=== PATIENT | male | born 1940 | race Caucasian/White ===

== ENCOUNTER 2016-08-09 09:14 | Emergency (ER) | payer MEDICARE ==
[2016-08-09 09:25] VITALS: TEMP 98.7
[2016-08-09] MEDS: HYDROcodone/APAP 5-325MG 1 EACH TAB PO STA (09:52)
--- NOTE | 2016-08-09 10:13 | XR ---
EXAMINATION TYPE: XR ankle complete LT DATE OF EXAM: 08/09/2016 10:06 AM COMPARISON: NONE HISTORY: Pain Three views of the ankle demonstrate the ankle mortise to be intact and symmetric. The joint spaces are preserved. The osseous structures are intact. Corticated densities along the medial malleolus a re noted which appear most likely chronic. There is diffuse soft tissue edema. Calcaneal spurs are no hemanth. Is a slightly irregular margin along the medial malleolus. IMPRESSION: 1. Findings suspicious for avulsion fracture medial malleolus correlate with point tenderness. 2. Diffuse soft tissue edema
--- NOTE | 2016-08-09 10:35 | ED ---
Extremity Problem HPI - General Chief complaint: Extremity Problem,Nontraumatic Stated complaint: ankle pain Time Seen by Provider: 08/09/16 09:49 Source: EMS, RN notes reviewed Mode of arrival: EMS Limitations: no limitations - History of Present Illness Initial comments: 75-year-old male presents to emergency department with a chief complaint of left ankle injury. Patient states on Monday he was walking and he twisted the ankle and felt a pop. He states later in the week he felt another pop. Patient states that P been unable to walk. Patient states he is tenderness to lateral aspect of the foot. Patient states that he doesn't have any other injuries in the incident there is no head trauma there is no actual fall. Patient denies any history of problems with the ankle. Patient states concerned due to his continued pain he thought that he should be evaluated. Patient denies any recent fever, chills, shortness of breath, chest pain, back pain, abdominal pain, nausea vomiting, numbness or tingling, dysuria or hematuria, constipation or diarrhea, headaches or visual changes, or any other current symptoms. - Related Data Home Medications Medication Instructions Recorded Confirmed [place] Hemifumarate [Tekturna] 75 mg PO HS 02/20/16 08/09/16 Cholecalciferol [Vitamin D3] 1,000 unit PO DAILY 02/20/16 08/09/16 Folic Acid 1 mg PO HS 02/20/16 08/09/16 Mesalamine [Delzicol] 400 mg PO TID 02/20/16 08/09/16 Potassium Chloride [Klor-Con 20] 20 meq PO BID 02/20/16 08/09/16 Rivaroxaban [Xarelto] 20 mg PO HS 02/20/16 08/09/16 hydrALAZINE HCL [Apresoline] 100 mg PO TID 02/20/16 08/09/16 LORazepam [Ativan] 1 mg PO BID 08/09/16 08/09/16 Pantoprazole Sodium [Protonix] 40 mg PO DAILY 08/09/16 08/09/16 Spironolactone [Aldactone] 25 mg PO DAILY 08/09/16 08/09/16 Previous Rx's Medication Instructions Recorded Nitroglycerin Sl Tabs [Nitrostat] 0.4 mg SUBLINGUAL Q5M PRN #100 tab 02/22/16 Hydrocodone/Acetaminophen [[place] 1 each PO Q6HR PRN #20 tab 08/09/16 5-325] Allergies Allergy/AdvReac Type Severity Reaction Status Date / Time meperidine HCl [From Demerol] Allergy BLOOD Verified 08/09/16 09:46 PRESSURE DROPPED Review of Systems ROS Statement: Those systems with pertinent positive or pertinent negative responses have been documented in the HPI. ROS Other: All systems not noted in ROS Statement are negative. Past Medical History Past Medical History: Atrial Fibrillation, Cancer, Hypertension, Sleep Apnea/ CPAP/BIPAP Additional Past Medical History / Comment(s): WEARS C-PAP AT HOME. LEFT SHOULDER ROTATOR CUFF INJURY CURRENTLY, RIGHT SIDE FLOATING RIB FROM OLD INJURY , PROSTATE CANCER WITH REMOVAL OF PROSTATE, Chrons, Multiple Myeloma History of Any Multi-Drug Resistant Organisms: None Reported Past Surgical History: Cholecystectomy, Orthopedic Surgery, Prostate Surgery Additional Past Surgical History / Comment(s): RIGHT KNEE REPLACED Past Anesthesia/Blood Transfusion Reactions: Postoperative Nausea & Vomiting ( PONV) Past Psychological History: No Psychological Hx Reported Smoking Status: Former smoker Past Alcohol Use History: Occasional Additional Past Alcohol Use History / Comment(s): QUIT SMOKING 40 YEARS AGO. Past Drug Use History: None Reported - Past Family History Father Family Medical History: Hypertension Additional Family Medical History / Comment(s): LUNG CANCER Mother Family Medical History: Hypertension Additional Family Medical History / Comment(s): LIVED UNTIL 95 YEARS OLD. General Exam - General Exam Comments Initial Comments: General: The patient is awake and alert, in no distress, and does not appear acutely ill. Neck: The neck is supple, there is no tenderness. Cardiovascular: There is a regular rate and rhythm. No murmur, rub or gallop is appreciated. Respiratory: Lungs are clear to auscultation, respirations are non-labored, breath sounds are equal. No wheezes, stridor, rales, or rhonchi. Musculoskeletal: Sensation intact with 2+ pulses throughout the left lower externa. Full range of motion of left knee and left ankle. Patient does appear to have medial and lateral tenderness to palpation with mild swelling noted. Patient does have full range motion of the toes. Patient has pain with range of motion of the ankle and will not do active range of motion passive is limited due to pain as well. No tenderness patient proximal tib-fib joint. Neurological: CN II-XII intact, There are no obvious motor or sensory deficits. Coordination appears grossly intact. Speech is normal. Skin: Skin is warm and dry and no rashes or lesions are noted. Psychiatric: Normal mood and affect. Limitations: no limitations Course Vital Signs 08/09/16 08/09/16 09:19 09:24 Temperature 98.7 F Pulse Rate 70 Respiratory 18 Rate Blood Pressure 150/87 O2 Sat by Pulse 97 Oximetry Procedures - Orthopedic Splinting/Casting Injury #1 Side: left Lower Extremity Injury Location: ankle Lower Extremity Immobilizer: posterior splint (Short leg) Medical Decision Making - Medical Decision Making 75-year-old male presents with what appears to be an avulsion fracture to the medial malleolus. Patient also does appear to most likely have a high-grade ankle sprain. This time we placed the patient is splinted we discussed follow- up with orthopedics is given information we will start patient on arrival for pain control. We discussed return parameters and all the patient's questions. He stated he understood he is in agreement with plan. At this time patient will be discharged home. - Radiology Data Radiology results: report reviewed, image reviewed Disposition Clinical Impression: Left ankle sprain, Avulsion fracture of left ankle Disposition: HOME SELF-CARE Condition: Stable Instructions: Ankle Fracture (ED) Additional Instructions: Please use medication as discussed. Please follow up with family doctor if symptoms have not improved over the next two days. Please return to the emergency room if your symptoms increase or worsen or for any other concerns. Prescriptions: Hydrocodone/Acetaminophen [[place] 5-325] 1 each PO Q6HR PRN #20 tab PRN Reason: Pain Referrals: Josue Watts MD [Primary Care Provider] - 1-2 days Mario Victoria DO [Doctor of Osteopathic Medicine] - 1-2 days Time of Disposition: 10:35
[2016-08-09] MEDS: HYDROmorphone 1 MG/ML 1 ML SYRINGE IM STA (10:40)
[2016-08-09 10:45] VITALS: BP 132/80; PULSE 82; RESP 16
== END 2016-08-09 10:48 | disposition home or self-care (01) ==
LOC: EC 09:14
DX: S82.52XA Displaced fracture of medial malleolus of left tibia, initial encounter for closed fracture (principal); S93.402A Sprain of unspecified ligament of left ankle, initial encounter; X50.1XXA Overexertion from prolonged static or awkward postures, initial encounter; I48.91 Unspecified atrial fibrillation; I10 Essential (primary) hypertension; K50.90 Crohn's disease, unspecified, without complications; G47.30 Sleep apnea, unspecified; Z79.01 Long term (current) use of anticoagulants; Z79.899 Other long term (current) drug therapy; Z88.5 Allergy status to narcotic agent; Z99.89 Dependence on other enabling machines and devices; Z87.891 Personal history of nicotine dependence
CPT/HCPCS: 73610; 99283; 29515; 96372; J1170

== ENCOUNTER 2018-09-22 06:24 | Inpatient (IN) | payer MEDICARE ==
[2018-09-22] MEDS ORDERED: ACETAMINOPHEN TAB 500 MG TAB PO STA (06:29)
[2018-09-22] MEDS ORDERED: IBUPROFEN 600 MG TAB PO STA (06:29)
[2018-09-22] MEDS: SODIUM CHLORIDE 0.9% 500 ML 500 ML IV SCH ×3 (06:42→09:02)
[2018-09-22 06:58] LABS: Basophils % (A) 0 %; Eosinophils # (A) 0.1 k/uL (0-0.7); Eosinophils % (A) 1 %; HCT 38.1 % (39.0-53.0); HGB 12.5 gm/dL (13.0-17.5); Lymphocytes # (A) 1.5 k/uL (1.0-4.8); Lymphocytes % (A) 15 %; MCH 28.2 pg (25.0-35.0); MCHC 32.8 g/dL (31.0-37.0); MCV 85.9 fL (80.0-100.0); Mean Platelet Volume 7.2; Monocytes # (A) 0.4 k/uL (0-1.0); Monocytes % (A) 4 %; Neutrophils # (A) 7.7 k/uL (1.3-7.7); Neutrophils % (A) 78 %; Platelet Count 144 k/uL (150-450); RBC 4.43 m/uL (4.30-5.90); RDW 15.3 % (11.5-15.5); WBC 9.8 k/uL (3.8-10.6)
--- NOTE | 2018-09-22 07:02 | XR ---
EXAM: XR Chest, 1 View CLINICAL HISTORY: ITS.REASON XR Reason: Fever TECHNIQUE: Frontal view of the chest. COMPARISON: 02/20/16. FINDINGS: Lungs: Bilateral lung opacities, more prominent in the lower lungs. Pleural space: No significant pleural effusion or pneumothorax. Heart: Enlarged cardiomediastinal silhouette. Mediastinum: Bilateral perihilar prominence, may be related to prominent vasculature, adenopathy/mass, or consolidation. Bones/joints: Old fracture deformities. Tubes, lines and devices: Left chest pacer. IMPRESSION: 1. Bilateral lung opacities, more prominent in the lower lungs. Correlate clinically regarding infection or edema. 2. Bilateral perihilar prominence, may be related to prominent vasculature, adenopathy/mass, or consolidation. 3. Enlarged cardiomediastinal silhouette.
[2018-09-22 07:13] LABS: INR 1.4 (<1.2); Partial Thromboplastin Time 27.1 sec (22.0-30.0); Prothrombin Time 14.1 sec (9.0-12.0); Total Bilirubin 1.5 mg/dL (0.2-1.3)
[2018-09-22] MEDS ORDERED: NALOXONE 0.4 MG/ML 1 ML VIAL IV PRN (07:26)
--- NOTE | 2018-09-22 07:26 | ED ---
SOB HPI - General Chief Complaint: Shortness of Breath Stated Complaint: Shortness of Breath Time Seen by Provider: 09/22/18 06:28 Source: patient, EMS Mode of arrival: EMS Limitations: no limitations - History of Present Illness Initial Comments: This is a pleasant 77-year-old male presents the emergency department today via EMS for evaluation of flulike illness. Patient reports that he's had fevers, chills, nausea, vomiting, nonproductive cough and generalized malaise for couple of days. This morning he was having nausea and vomiting which prompted his son to call [facility] on their arrival they noted the patient is mildly hypoxic, increased work of breathing and was febrile. Patient received breathing treatment, albuterol and DuoNeb as well as 125 of Solu-Medrol in route to the hospital with improvement in his breathing. - Related Data Home Medications Medication Instructions Recorded Confirmed Cholecalciferol [Vitamin D3] 1,000 unit PO DAILY 02/20/16 09/22/18 Folic Acid 1 mg PO HS 02/20/16 09/22/18 Potassium Chloride [Klor-Con 20] 20 meq PO BID 02/20/16 09/22/18 Rivaroxaban [Xarelto] 20 mg PO HS 02/20/16 09/22/18 Carvedilol [Coreg] 12.5 mg PO BID 09/22/18 09/22/18 Furosemide [Lasix] 40 mg PO DAILY 09/22/18 09/22/18 Gabapentin [Neurontin] 300 mg PO BID 09/22/18 09/22/18 Isosorbide Dinitrate [Isordil] 5 mg PO TID 09/22/18 09/22/18 Rivaroxaban [Xarelto] 20 mg PO DAILY 09/22/18 09/22/18 hydrALAZINE HCL [Apresoline] 100 mg PO BID 09/22/18 09/22/18 Previous Rx's Medication Instructions Recorded Nitroglycerin Sl Tabs [Nitrostat] 0.4 mg SUBLINGUAL Q5M PRN #100 tab 02/22/16 Allergies Allergy/AdvReac Type Severity Reaction Status Date / Time meperidine HCl [From Demerol] Allergy BLOOD Verified 09/22/18 07:29 PRESSURE DROPPED Review of Systems ROS Statement: Those systems with pertinent positive or pertinent negative responses have been documented in the HPI. ROS Other: All systems not noted in ROS Statement are negative. Constitutional: Reports: fever, chills Respiratory: Reports: cough, dyspnea Endocrine: Reports: fatigue Gastrointestinal: Reports: nausea, vomiting Neurological: Reports: weakness (Generalized) Past Medical History Past Medical History: Atrial Fibrillation, Cancer, Hypertension, Sleep Apnea/CPAP/BIPAP Additional Past Medical History / Comment(s): WEARS C-PAP AT HOME. LEFT SHOULDER ROTATOR CUFF INJURY CURRENTLY, RIGHT SIDE FLOATING RIB FROM OLD INJURY, PROSTATE CANCER WITH REMOVAL OF PROSTATE, Chrons, Multiple Myeloma History of Any Multi-Drug Resistant Organisms: None Reported Past Surgical History: Cholecystectomy, Orthopedic Surgery, Prostate Surgery Additional Past Surgical History / Comment(s): RIGHT KNEE REPLACED Past Anesthesia/Blood Transfusion Reactions: Postoperative Nausea & Vomiting (PONV) Past Psychological History: No Psychological Hx Reported Smoking Status: Former smoker Past Alcohol Use History: Occasional Past Drug Use History: None Reported - Past Family History Father Family Medical History: Hypertension Additional Family Medical History / Comment(s): LUNG CANCER Mother Family Medical History: Hypertension Additional Family Medical History / Comment(s): LIVED UNTIL 95 YEARS OLD. General Exam - General Exam Comments Initial Comments: Physical Exam GENERAL: Ill-appearing elderly male HENT: Normocephalic, Atraumatic. EYES: PERRL, EOMI PULMONARY: Crackles at bilateral bases CARDIOVASCULAR: RRR ABDOMEN: Soft and nontender with normal bowel sounds. SKIN: Warm to the touch and dry : Deferred NEUROLOGIC: Patient is alert and oriented x3. Moving all extremities spontaneously MUSCULOSKELETAL: Normal extremities with adequate strength and full range of motion. No lower extremity swelling or edema. No calf tenderness. PSYCHIATRIC: Normal psychiatric evaluation. Limitations: no limitations Limitations: no limitations Course Vital Signs 09/22/18 09/22/18 06:26 07:32 Temperature 101.1 F H 98.8 F Pulse Rate 86 60 Respiratory 28 H 16 Rate Blood Pressure 167/114 149/101 O2 Sat by Pulse 96 98 Oximetry Medical Decision Making - Medical Decision Making was seen and evaluated history is obtained from the patient and EMS Physical 77-year-old presenting with a flulike illness Patient is noted to be tachypneic and febrile. Sepsis workup was initiated including blood cultures already have a high suspicion for influenza and influenza swab will be obtained as well but no leukocytosis Influenza A is positive is concerning for possible early infiltrate however given the setting of influence I suspect is likely viral pneumonia Asians care was discussed with admitting physician Dr. Cervantes of the [facility] who agrees with plan for admission for influenza A in elderly male. - Lab Data Result diagrams: 09/22/18 06:38 09/22/18 06:38 Lab Results 09/22/18 09/22/18 09/22/18 Range/Units 06:27 06:38 06:38 WBC 9.8 (3.8-10.6) k/uL RBC 4.43 (4.30-5.90) m/uL Hgb 12.5 L (13.0-17.5) gm/dL Hct 38.1 L (39.0-53.0) % MCV 85.9 (80.0-100.0) fL MCH 28.2 (25.0-35.0) pg MCHC 32.8 (31.0-37.0) g/dL RDW 15.3 (11.5-15.5) % Plt Count 144 L (150-450) k/uL Neutrophils % 78 % Lymphocytes % 15 % Monocytes % 4 % Eosinophils % 1 % Basophils % 0 % Neutrophils # 7.7 (1.3-7.7) k/uL Lymphocytes # 1.5 (1.0-4.8) k/uL Monocytes # 0.4 (0-1.0) k/uL Eosinophils # 0.1 (0-0.7) k/uL Basophils # 0.0 (0-0.2) k/uL PT (9.0-12.0) sec INR (<1.2) APTT (22.0-30.0) sec Sodium 140 (137-145) mmol/L Potassium 4.1 (3.5-5.1) mmol/L Chloride 100 (98-107) mmol/L Carbon Dioxide 32 H (22-30) mmol/L Anion Gap 8 mmol/L BUN 18 (9-20) mg/dL Creatinine 1.40 H (0.66-1.25) mg/dL Est GFR (CKD-EPI)AfAm 55 (>60 ml/min/1.73 sqM) Est GFR (CKD-EPI)NonAf 48 (>60 ml/min/1.73 sqM) Glucose 109 H (74-99) mg/dL Plasma Lactic Acid Maurice (0.7-2.0) mmol/L Calcium 9.0 (8.4-10.2) mg/dL Total Bilirubin 1.5 H (0.2-1.3) mg/dL AST 53 (17-59) U/L ALT 31 (21-72) U/L Alkaline Phosphatase 37 L (38-126) U/L Total Protein 7.8 (6.3-8.2) g/dL Albumin 4.3 (3.5-5.0) g/dL Influenza Type A RNA Detected H (Not Detectd) Influenza Type B (PCR) Not Detected (Not Detectd) 09/22/18 09/22/18 Range/Units 06:38 06:38 WBC (3.8-10.6) k/uL RBC (4.30-5.90) m/uL Hgb (13.0-17.5) gm/dL Hct (39.0-53.0) % MCV (80.0-100.0) fL MCH (25.0-35.0) pg MCHC (31.0-37.0) g/dL RDW (11.5-15.5) % Plt Count (150-450) k/uL Neutrophils % % Lymphocytes % % Monocytes % % Eosinophils % % Basophils % % Neutrophils # (1.3-7.7) k/uL Lymphocytes # (1.0-4.8) k/uL Monocytes # (0-1.0) k/uL Eosinophils # (0-0.7) k/uL Basophils # (0-0.2) k/uL PT 14.1 H (9.0-12.0) sec INR 1.4 H (<1.2) APTT 27.1 (22.0-30.0) sec Sodium (137-145) mmol/L Potassium (3.5-5.1) mmol/L Chloride (98-107) mmol/L Carbon Dioxide (22-30) mmol/L Anion Gap mmol/L BUN (9-20) mg/dL Creatinine (0.66-1.25) mg/dL Est GFR (CKD-EPI)AfAm (>60 ml/min/1.73 sqM) Est GFR (CKD-EPI)NonAf (>60 ml/min/1.73 sqM) Glucose (74-99) mg/dL Plasma Lactic Acid Maurice 1.2 (0.7-2.0) mmol/L Calcium (8.4-10.2) mg/dL Total Bilirubin (0.2-1.3) mg/dL AST (17-59) U/L ALT (21-72) U/L Alkaline Phosphatase (38-126) U/L Total Protein (6.3-8.2) g/dL Albumin (3.5-5.0) g/dL Influenza Type A RNA (Not Detectd) Influenza Type B (PCR) (Not Detectd) - EKG Data -: EKG Interpreted by Me EKG Comments: G was obtained at 6:20 AM, rate 75 rhythm is a ventricularly paced, QRS is 182 QTc is [address] elevations or depressions no evidence of acute ischemia or infarction. Disposition Clinical Impression: Influenza Disposition: ADMITTED IP TO THIS HOSP Condition: Stable Referrals: Nonstaff,Physician [Primary Care Provider] - 1-2 days
[2018-09-22 07:30] LABS: Potassium 4.1 mmol/L (3.5-5.1)
[2018-09-22 07:31] LABS: Albumin 4.3 g/dL (3.5-5.0); Total Protein 7.8 g/dL (6.3-8.2)
[2018-09-22] MEDS ORDERED: hydrALAZINE HCL 50 MG TAB PO STA (07:53)
[2018-09-22] MEDS: CARVEDILOL 12.5 MG TAB PO SCH ×4 (08:36→16:49)
[2018-09-22] MEDS ORDERED: CARVEDILOL 12.5 MG TAB PO STA (08:42)
[2018-09-22] MEDS ORDERED: RIVAROXABAN 20 MG TAB PO SCH ×2 (09:00→21:00)
[2018-09-22] MEDS ORDERED: NON-FORMULARY DRUG (Carvedilol [Coreg] 12.5 MG) PO SCH (09:00)
[2018-09-22] MEDS: FUROSEMIDE 40 MG TAB PO SCH (09:54)
[2018-09-22] MEDS: GABAPENTIN 300 MG CAP PO SCH ×2 (09:54→21:14)
[2018-09-22 10:14] LABS: Appearance,Urine Clear (Clear); Bilirubin,Urine Negative (Negative); Blood,Urine Negative (Negative); Color,Urine Yellow; Glucose,Urine (UA) Negative (Negative); Ketones,Urine Trace (Negative); Leukocyte Esterase,Urine Negative (Negative); Nitrite,Urine Negative (Negative); PH, Urine 6.5 (5.0-8.0); Protein,Urine 1+ (Negative); RBC,Urine 2 /hpf (0-5); Specific Gravity,Urine 1.011 (1.001-1.035); Urobilinogen,Urine <2.0 mg/dL (<2.0); WBC,Urine <1 /hpf (0-5)
[2018-09-22] MEDS: OSELTAMIVIR 60 MG/10 ML ORAL SYRINGE PO SCH ×2 (11:03→21:13)
[2018-09-22] MEDS: ISOSORBIDE DINITRATE 10 MG TAB PO SCH ×3 (11:04→21:15)
[2018-09-22] MEDS ORDERED: NITROGLYCERIN SL TABS 0.4 MG TAB SUBLINGUAL PRN (11:57)
[2018-09-22] MEDS ORDERED: SODIUM CHLORIDE 0.9% 1,000 ML IV SCH (12:00)
[2018-09-22] MEDS ORDERED: IPRATROPIUM-ALBUTEROL 3 ML NEB INHALATION PRN (12:08)
[2018-09-22] MEDS ORDERED: AZITHROMYCIN 500 MG TAB PO STA (12:10)
--- NOTE | 2018-09-22 13:06 | P.HPIM ---
History of Present Illness H&P Date: 09/22/18 Chief Complaint: Shortness of breath and cough The patient is a 77-year-old male with a past focal history of chronic atrial fibrillation on anticoagulation with Xarelto, congestive heart failure of unknown type, history of pacemaker placement, essential hypertension, multiple myeloma presumed to be in remission who presents to the ER via EMS with his daughter with chief complaint of complaints of increasing shortness of air and cough. Apparently the patient ran having a productive cough with clear sputum over a week ago and over the last 3 days has been having progressive increasing shortness of breath worsened by exertion and relieved by rest, with subjective fevers chills or night sweats last night. The patient has been increasingly fatigued but he denies any chest pain, denies palpitations denies lower extremity swelling. The patient has had nausea and vomiting but denies any abdominal pain or diarrhea. The patient is a former smoker has a prior [id number] history but has not smoked for 40 years. Apparently on arrival EMS found the patient mildly hypoxic, actual saturations not available. In the ER he had a comprehensive workup was found to be influenza A positive, with chest x-ray showing bilateral lung opacities more prominent on the lower lungs with bilateral perihilar prominence and enlarged cardio mediastinal silhouette, EKG revealed ventricular paced rhythm. Troponins was elevated at 0.070, creatinine was 1.4, total bilirubin 1.5, trace ketones. Patient was started on breathing treatments Solu-Medrol and Tamiflu and tian mmended for admission Review of Systems Pertinent positives per HPI all other systems otherwise negative Past Medical History Past Medical History: Atrial Fibrillation, Cancer, Heart Failure, Hypertension, Sleep Apnea/CPAP/BIPAP Additional Past Medical History / Comment(s): WEARS C-PAP AT HOME. LEFT SHOULDER ROTATOR CUFF INJURY CURRENTLY, RIGHT SIDE FLOATING RIB FROM OLD INJURY, PROSTATE CANCER WITH REMOVAL OF PROSTATE, Chrons, Multiple Myeloma , uses a cane, pacemaker History of Any Multi-Drug Resistant Organisms: None Reported Past Surgical History: Cholecystectomy, Orthopedic Surgery, Pacemaker, Prostate Surgery Additional Past Surgical History / Comment(s): RIGHT KNEE REPLACED, pacemaker 2018, Past Anesthesia/Blood Transfusion Reactions: Postoperative Nausea & Vomiting (PONV) Type of Cardiac Device: Permanent Pacemaker Device Placement Date:: 2017 Past Psychological History: No Psychological Hx Reported Smoking Status: Former smoker Past Alcohol Use History: Occasional Additional Past Alcohol Use History / Comment(s): QUIT SMOKING 40 YEARS AGO. Past Drug Use History: None Reported - Past Family History Father Family Medical History: Hypertension Additional Family Medical History / Comment(s): LUNG CANCER Mother Family Medical History: Hypertension Additional Family Medical History / Comment(s): LIVED UNTIL 95 YEARS OLD. Medications and Allergies Home Medications Medication Instructions Recorded Confirmed Type Cholecalciferol [Vitamin D3] 1,000 unit PO DAILY 02/20/16 09/22/18 History Folic Acid 1 mg PO HS 02/20/16 09/22/18 History Potassium Chloride [Klor-Con 20] 20 meq PO BID 02/20/16 09/22/18 History Rivaroxaban [Xarelto] 20 mg PO HS 02/20/16 09/22/18 History Nitroglycerin Sl Tabs [Nitrostat] 0.4 mg SUBLINGUAL Q5M PRN #100 tab 02/22/16 09/22/18 Rx Carvedilol [Coreg] 12.5 mg PO BID 09/22/18 09/22/18 History Furosemide [Lasix] 40 mg PO DAILY 09/22/18 09/22/18 History Gabapentin [Neurontin] 300 mg PO BID 09/22/18 09/22/18 History Isosorbide Dinitrate [Isordil] 5 mg PO TID 09/22/18 09/22/18 History Rivaroxaban [Xarelto] 20 mg PO DAILY 09/22/18 09/22/18 History hydrALAZINE HCL [Apresoline] 100 mg PO BID 09/22/18 09/22/18 History Allergies Allergy/AdvReac Type Severity Reaction Status Date / Time meperidine HCl [From Demerol] Allergy BLOOD Verified 09/22/18 07:29 PRESSURE DROPPED Physical Exam Vitals: Vital Signs Temp Pulse Resp BP Pulse Ox 09/22/18 10:39 18 09/22/18 08:47 65 19 134/88 97 09/22/18 07:32 98.8 F 60 16 149/101 98 09/22/18 06:26 101.1 F H 86 28 H 167/114 96 Intake and Output 09/21/18 09/22/18 09/22/18 22:59 06:59 14:59 Other: Voiding Method Toilet Weight 103.873 kg Constitutional: No acute distress, conversant, pleasant Eyes: Anicteric sclerae, moist conjunctiva, no lid-lag, PERRLA ENMT: NC/AT,Oropharynx clear, no erythema, exudates Neck:Supple, FROM, no masses, or JVD, No carotid bruits; No thyromegaly Lungs: Diminished in the bases mild expiratory wheezes, Clear to percussion, Normal respiratory effort, no accessory muscle use on 2 L nasal cannula Cardiovascular: Paced rhythm, No murmurs, gallops, or rubs no peripheral edema Abdominal: Soft Nontender, nom distended, no guarding, no rebound or rigidity, Normoactive bowel sounds No hepatomegaly, No splenomegaly, No palpable mass No abdominal wall hernia noted Skin: Normal temperature, tone, texture, turgor, No induration No subcutaneous nodules, No rash, lesions, No ulcers Extremities:No digital cyanosis No clubbing, Pedal pulses intact and symmetrical Radial pulses intact and symmetrical Normal gait and station, No calf tenderness Psychiatric: Alert and oriented to person, place and time, Appropriate affect Intact judgement Neuro: Muscles Strength 5/5 in all 4 extremities, Sensation to light touch grossly present throughout, Cranial nerves II-XII grossly intact. No focal sensory deficits Results CBC & Chem 7: 09/22/18 06:38 09/22/18 06:38 Labs: Abnormal Lab Results - Last 24 Hours (Table) 09/22/18 09/22/18 09/22/18 Range/Units 06:27 06:38 06:38 Hgb 12.5 L (13.0-17.5) gm/dL Hct 38.1 L (39.0-53.0) % Plt Count 144 L (150-450) k/uL PT (9.0-12.0) sec INR (<1.2) Carbon Dioxide 32 H (22-30) mmol/L Creatinine 1.40 H (0.66-1.25) mg/dL Glucose 109 H (74-99) mg/dL Total Bilirubin 1.5 H (0.2-1.3) mg/dL Alkaline Phosphatase 37 L (38-126) U/L Troponin I (0.000-0.034) ng/mL Urine Protein (Negative) Urine Ketones (Negative) Influenza Type A RNA Detected H (Not Detectd) 09/22/18 09/22/1819 Range/Units 06:38 06:38 09:32 Hgb (13.0-17.5) gm/dL Hct (39.0-53.0) % Plt Count (150-450) k/uL PT 14.1 H (9.0-12.0) sec INR 1.4 H (<1.2) Carbon Dioxide (22-30) mmol/L Creatinine (0.66-1.25) mg/dL Glucose (74-99) mg/dL Total Bilirubin (0.2-1.3) mg/dL Alkaline Phosphatase (38-126) U/L Troponin I 0.070 H* (0.000-0.034) ng/mL Urine Protein 1+ H (Negative) Urine Ketones Trace H (Negative) Influenza Type A RNA (Not Detectd) Thrombosis Risk Factor Assmnt - Choose All That Apply Any of the Below Risk Factors Present?: No Assessment and Plan Assessment: Chronic medical conditions Essential hypertension Congestive heart failure of unknown type Osteoarthritis History of multiple myeloma currently in remission Obstructive sleep apnea Crohn's disease (1) Sepsis Current Visit: Yes Status: Acute Code(s): A41.9 - SEPSIS, UNSPECIFIED ORGANISM SNOMED Code(s): 79904584 (2) Exertional dyspnea Current Visit: Yes Status: Acute Code(s): R06.09 - OTHER FORMS OF DYSPNEA SNOMED Code(s): 73021432 (3) Pneumonia Current Visit: Yes Status: Acute Code(s): J18.9 - PNEUMONIA, UNSPECIFIED ORGANISM SNOMED Code(s): 188364190 (4) Influenza Current Visit: Yes Status: Acute Code(s): J11.1 - FLU DUE TO UNIDENTIFIED INFLUENZA VIRUS W OTH RESP MANIFEST SNOMED Code(s): 6649532 (5) Chronic a-fib Current Visit: Yes Status: Acute Code(s): I48.2 - CHRONIC ATRIAL FIBRILLATION SNOMED Code(s): 407265126 (6) Elevated troponin Current Visit: Yes Status: Acute Code(s): R74.8 - ABNORMAL LEVELS OF OTHER SERUM ENZYMES SNOMED Code(s): 636755916 Plan: The patient is admitted anticipated greater than 2 midnight stay after presenting with exertional dyspnea and cough admitted with sepsis, secondary to pneumonia possibly virally induced with positive influenza A along with ongoing fevers. The patient is started on empiric IV antibiotics with Rocephin and azithromycin and continue antibiotic therapy with Tamiflu, continue supportive therapy with albuterol Atrovent DuoNeb bronchodilator breathing treatments, and supplemental oxygen. We'll repeat chest x-ray in the morning, blood cultures have been ordered. Patient also to have elevated troponins consult cardiology, the patient initiated on aspirin and is continued on his home medications inc luding Coreg, Lasix, nitrates and Xarelto. We'll continue to monitor his clinical course. CODE STATUS: DNI Anticipated discharge: 2-3 days Discussed plan of care with: Patient and his daughter Prophylaxis: Currently on anticoagulation Advanced Care Planning Active diagnoses: Sepsis due to pneumonia and influenza A Background: Patient is admitted with sepsis due to pneumonia influenza Discussion: Person(s) present and participating in discussion: The patient, myself, and patient 2 daughters Summary: The patient would like to proceed with CPR but no intubation, reports being amenable to BiPAP Time spent: Total time spent face to face in education and discussion directly related to advanced care planning: >15 minutes Time with Patient: Greater than 30
[2018-09-22] MEDS: ASPIRIN 325 MG TAB PO SCH (13:14)
[2018-09-22] MEDS: CHOLECALCIFEROL 1,000 UNIT TAB PO SCH (13:14)
[2018-09-22] MEDS: IPRATROPIUM-ALBUTEROL 3 ML NEB INHALATION SCH ×3 (15:51→23:20)
[2018-09-22] MEDS: FOLIC ACID 1 MG TAB PO SCH (21:15)
[2018-09-22] MEDS: hydrALAZINE HCL 50 MG TAB PO SCH (21:15)
[2018-09-22] MEDS: POTASSIUM CHLORIDE ER 20 MEQ TAB.ER PO SCH (21:15)
--- NOTE | 2018-09-23 00:48 | CT ---
EXAM: CT Abdomen Without Intravenous Contrast CLINICAL HISTORY: ITS.REASON CT Reason: L sided abdominal pain w/ palpable mass, w/ pain TECHNIQUE: Axial computed tomography images of the abdomen without intravenous contrast. CTDI is 6.53 mGy and DLP is 120 mGy-cm. This CT exam was performed using one or more of the following dose reduction techniques: automated exposure control, adjustment of the mA and/or kV according to patient size, and/or use of iterative reconstruction technique. COMPARISON: Chest radiograph 09/22/2018. FINDINGS: Lung bases: Atelectasis is seen in the lower lobes. Heart: Cardiomegaly. Small pericardial effusion. Liver: Unremarkable. Gallbladder and bile ducts: Cholecystectomy. No ductal dilation. Pancreas: Unremarkable. No ductal dilation. Spleen: Unremarkable. No splenomegaly. Adrenals: Unremarkable. No mass. Kidneys and ureters: Bilateral renal hypodensities are too small to characterize. No obstructing stones. No hydronephrosis. Stomach and bowel: Unremarkable. No obstruction. No mucosal thickening. Intraperitoneal space: Unremarkable. No free air. No significant fluid collection. Bones/joints: Old right rib fractures. Multilevel degenerative change throughout the spine. No dislocation. Soft tissues: Hyperdensity and thickening is seen in the left rectus muscles which could potentially represent an intramuscular hematoma or mass lesion. Vasculature: Aneurysmal dilatation of the descending thoracic aorta measuring up to 4.7 cm. Atherosclerotic calcification throughout the aorta. Lymph nodes: Unremarkable. No enlarged lymph nodes. IMPRESSION: 1. Hyperdensity and thickening is seen in the left rectus muscles which could potentially represent an intramuscular hematoma or mass lesion. Clinical correlation is recommended. Consider evaluation with MRI as warranted. 2. Aneurysmal dilatation of the descending thoracic aorta measuring up to 4.7 cm. 3. Cardiomegaly with small pericardial effusion.
[2018-09-23] MEDS ORDERED: MORPHINE SULFATE 2 MG/ML SYRINGE IVP STA (01:39)
[2018-09-23] MEDS: IPRATROPIUM-ALBUTEROL 3 ML NEB INHALATION SCH ×7 (03:14→19:38)
[2018-09-23] MEDS ORDERED: HYDROcodone/APAP 7.5-325MG 1 EACH TAB PO ONE ×2 (04:26→21:30)
[2018-09-23] MEDS: FUROSEMIDE 40 MG TAB PO SCH (07:36)
[2018-09-23] MEDS: CHOLECALCIFEROL 1,000 UNIT TAB PO SCH (07:36)
[2018-09-23] MEDS: POTASSIUM CHLORIDE ER 20 MEQ TAB.ER PO SCH ×2 (07:36→20:15)
[2018-09-23] MEDS: hydrALAZINE HCL 50 MG TAB PO SCH ×2 (07:36→20:15)
[2018-09-23] MEDS: CARVEDILOL 12.5 MG TAB PO SCH ×2 (07:37→16:37)
[2018-09-23] MEDS: GABAPENTIN 300 MG CAP PO SCH ×2 (07:37→20:15)
[2018-09-23] MEDS: ASPIRIN 325 MG TAB PO SCH (07:37)
[2018-09-23] MEDS: ISOSORBIDE DINITRATE 10 MG TAB PO SCH ×3 (07:38→20:16)
[2018-09-23] MEDS: OSELTAMIVIR 60 MG/10 ML ORAL SYRINGE PO SCH ×2 (07:39→20:16)
[2018-09-23 08:40] LABS: Basophils % (A) 0 %; Eosinophils % (A) 0 %; HCT 37.4 % (39.0-53.0); HGB 12.1 gm/dL (13.0-17.5); Lymphocytes % (A) 10 %; MCH 27.5 pg (25.0-35.0); MCHC 32.3 g/dL (31.0-37.0); MCV 85.2 fL (80.0-100.0); Mean Platelet Volume 7.6; Monocytes # (A) 0.5 k/uL (0-1.0); Monocytes % (A) 5 %; Neutrophils # (A) 8.4 k/uL (1.3-7.7); Neutrophils % (A) 84 %; Platelet Count 157 k/uL (150-450); RBC 4.39 m/uL (4.30-5.90); RDW 15.2 % (11.5-15.5); WBC 9.9 k/uL (3.8-10.6)
[2018-09-23] MEDS: AZITHROMYCIN 250 MG TAB PO SCH (08:53)
[2018-09-23 09:26] LABS: Calcium 8.8 mg/dL (8.4-10.2); Potassium 3.3 mmol/L (3.5-5.1)
--- NOTE | 2018-09-23 09:59 | XR ---
EXAMINATION TYPE: XR chest 2V DATE OF EXAM: 09/23/2018 COMPARISON: 09/22/2018 HISTORY: Shortness of breath TECHNIQUE: Frontal and lateral views of the chest are obtained. FINDINGS: Scattered senescent parenchymal changes noted. Hyperinflation compatible with COPD. No evidence for infiltrate. No evidence for atelectasis. Heart size is stable. Mediastinal structures are stable and grossly unremarkable. No evidence for hilar prominence. Degenerative changes dorsal spine. IMPRESSION: 1. No evidence for acute pulmonary disease.
[2018-09-23] MEDS ORDERED: POTASSIUM CHLORIDE ER 20 MEQ TAB.ER PO SCH (10:00)
[2018-09-23] MEDS ORDERED: POTASSIUM CHLORIDE ER 20 MEQ TAB.ER PO STA (10:44)
--- NOTE | 2018-09-23 10:45 | P.PN ---
Subjective Progress Note Date: 09/23/18 Patient seen and examined at bedside reported poor sleep overnight, reports his breathing is improved apparently had some left-sided abdominal pain after a paroxysm of cough heard a pop subsequent CT of the abdomen suggesting right rectus abdominis hematoma versus mass. Patient afebrile overnight leukocytosis negative and continues to receive breathing treatments, Chest x-ray this morning negative for any acute cardiopulmonary process Objective - Vital Signs Vital signs: Vital Signs Temp 97.6 F 09/23/18 05:00 Pulse 64 09/23/18 09:29 Resp 16 09/23/18 05:00 BP 166/111 09/23/18 05:00 Pulse Ox 98 09/23/18 05:05 Intake & Output 09/22/18 09/23/18 09/23/18 18:59 06:59 18:59 Output Total 400 Balance -400 Weight 102.2 kg Output: Urine 400 Other: Voiding Method Toilet Toilet # Voids 1 2 - Exam Constitutional: No acute distress, conversant, pleasant Eyes: Anicteric sclerae, moist conjunctiva, no lid-lag, PERRLA ENMT: NC/AT,Oropharynx clear, no erythema, exudates Neck:Supple, FROM, no masses, or JVD, No carotid bruits; No thyromegaly Lungs: Clear to auscultation, Clear to percussion, Normal respiratory effort, no accessory muscle use Cardiovascular: Heart regular in rate and rhythm, No murmurs, gallops, or rubs no peripheral edema Abdominal: Soft Nontender, nom distended, no guarding, no rebound or rigidity, Normoactive bowel sounds No hepatomegaly, No splenomegaly, No palpable mass No abdominal wall hernia noted Skin: Normal temperature, tone, texture, turgor, No induration No subcutaneous nodules, No rash, lesions, No ulcers Extremities:No digital cyanosis No clubbing, Pedal pulses intact and symmetrica l Radial pulses intact and symmetrical Normal gait and station, No calf tenderness Psychiatric: Alert and oriented to person, place and time, Appropriate affect Intact judgement Neuro: Muscles Strength 5/5 in all 4 extremities, Sensation to light touch grossly present throughout, Cranial nerves II-XII grossly intact. No focal sensory deficits - Labs CBC & Chem 7: 09/23/18 07:56 09/23/18 07:56 Labs: Abnormal Lab Results - Last 24 Hours (Table) 09/22/18 09/22/18 09/23/18 Range/Units 12:26 19:03 07:56 Hgb 12.1 L (13.0-17.5) gm/dL Hct 37.4 L (39.0-53.0) % Neutrophils # 8.4 H (1.3-7.7) k/uL Potassium (3.5-5.1) mmol/L Carbon Dioxide (22-30) mmol/L BUN (9-20) mg/dL Creatinine (0.66-1.25) mg/dL Glucose (74-99) mg/dL Troponin I 0.080 H* 0.064 H* (0.000-0.034) ng/mL 09/23/18 Range/Units 07:56 Hgb (13.0-17.5) gm/dL Hct (39.0-53.0) % Neutrophils # (1.3-7.7) k/uL Potassium 3.3 L (3.5-5.1) mmol/L Carbon Dioxide 33 H (22-30) mmol/L BUN 23 H (9-20) mg/dL Creatinine 1.31 H (0.66-1.25) mg/dL Glucose 124 H (74-99) mg/dL Troponin I (0.000-0.034) ng/mL Microbiology - Last 24 Hours (Table) 09/22/18 06:38 Blood Culture - Preliminary Blood No Growth after 24 hours 09/22/18 20:01 Gram Stain - Preliminary Sputum 09/22/18 09:32 Urine Culture - Preliminary Urine,Voided Assessment and Plan (1) Sepsis Narrative/Plan: * Secondary to influenza versus pneumonia * Follow-up chest x-ray this morning clear * Patient afebrile without leukocytosis * Continue regimen of azithromycin and Rocephin and Tamiflu * Hemodynamically stable Current Visit: Yes Status: Acute Code(s): A41.9 - SEPSIS, UNSPECIFIED ORGANISM SNOMED Code(s): 15115746 (2) Pneumonia Narrative/Plan: * We'll continue Rocephin and azithromycin Current Visit: Yes Status: Acute Code(s): J18.9 - PNEUMONIA, UNSPECIFIED ORGANISM SNOMED Code(s): 086103130 (3) Influenza Narrative/Plan: * Continue treatment with Tamiflu Current Visit: Yes Status: Acute Code(s): J11.1 - FLU DUE TO UNIDENTIFIED INFLUENZA VIRUS W OTH RESP MANIFEST SNOMED Code(s): 0754211 (4) Exertional dyspnea Narrative/Plan: * Secondary to flu and pneumonia Current Visit: Yes Status: Acute Code(s): R06.09 - OTHER FORMS OF DYSPNEA SNOMED Code(s): 45367342 (5) Chronic a-fib Narrative/Plan: * Rate controlled stable * Continue beta herbert Coreg and anticoagulation with Xarelto Current Visit: Yes Status: Acute Code(s): I48.2 - CHRONIC ATRIAL FIBRILLATION SNOMED Code(s): 321180813 (6) Elevated troponin Narrative/Plan: * Likely secondary to sepsis, echocardiogram ordered * Cardiology consulted Current Visit: Yes Status: Acute Code(s): R74.8 - ABNORMAL LEVELS OF OTHER SERUM ENZYMES SNOMED Code(s): 356622349 (7) Thoracic aortic aneurysm without rupture Narrative/Plan: * CT abdomen confirming thoracic aortic aneurysm approximately 4.7 cm Current Visit: Yes Status: Acute Code(s): I71.2 - THORACIC AORTIC ANEURYSM, WITHOUT RUPTURE SNOMED Code(s): 48551550 (8) Hypokalemia Narrative/Plan: * Replace and recheck Current Visit: Yes Status: Acute Code(s): E87.6 - HYPOKALEMIA SNOMED Code(s): 66597266 Plan: * Anticipated discharge tomorrow
--- NOTE | 2018-09-23 11:56 | P.GSCN ---
History of Present Illness Consult date: 09/23/18 Requesting physician: Ephraim Martinez History of present illness: CHIEF COMPLAINT: Abdominal pain, rectus hematoma HISTORY OF PRESENT ILLNESS: The patient is a 77-year-old gentleman admitted for influenza pneumonia. He has multiple comorbidities including ischemic cardiomyopathy with congestive heart failure, chronic atrial fibrillation, chron ic anticoagulant therapy, bilateral lower extremity neuropathy who had a violent cough and resultant "pop" of the abdomen. He reported sharp moderate to severe abdominal pain prompting CT of the abdomen noncontrast study. Findings are consistent with left rectus sheath hematoma. Hemoglobin has been over 10.0. As this event happened within the last 12 to 24 hours, today he states his pain has improved. No nausea and vomiting. He is currently off all blood thinners in the last 24 hours. He is on contact precautions. He denies any previous episodes. PAST MEDICAL HISTORY: See list. PAST SURGICAL HISTORY: See list. MEDICATIONS: See list. ALLERGIES: See list. SOCIAL HISTORY: No illicit drug use FAMILY HISTORY: No reports of Crohn's disease or inflammatory bowel disease REVIEW OF ORGAN SYSTEMS: CONSTITUTIONAL: No fevers or chills. No recent weight loss. EYES: Denies any trouble with vision. No glasses. HEENT: No difficulties with hearing. No nosebleeds. No difficulty swallowing. RESPIRATORY: Has current influenza pneumonia. Denies any troubles with breathing. Has sleep apnea CARDIOVASCULAR: Past chest pain, palpitations, or recent heart attacks. Has ischemic cardiomyopathy. Has heart failure. GASTROINTESTINAL: Denies fatty food intolerance. Denies change in bowel habits and gas bloat. GENITOURINARY: Past history of prostate cancer status post resection. No present hematuria. NEUROLOGICAL: Has numbness or tingling along the distal extremities. No seizure disorders or headaches. MUSCULOSKELETAL: Has back pain, stiffness or joint arthritis. SKIN: No current skin cancer. . PSYCHIATRIC: Denies current depression or suicidal thoughts. ENDOCRINE: Denies current thyroid disorders. Denies any blood sugar glucose intolerance. HEME/LYMPHATIC: Denies any lumps and bumps around the neck. He is on Xarelto. ALLERGY/IMMUNOLOGY: No immunoglobulin therapy. No immune deficiencies. BREAST: Denies current breast lumps, pain or nipple discharge. PHYSICAL EXAM: VITALS: Reviewed CONSTITUTIONAL: Well developed and in no acute distress. EYES: Conjuctivae without sclera icterus. Pupils are equally round and reactive to light. Extraocular movements grossly intact. HEAD, EARS, NOSE, THROAT: Moist buccal mucosa. Head is atraumatic, normocephalic. Hears conversational speech. No nasal drainage. NECK: Supple. No JV distention. No thyroidomegaly. RESPIRATORY: Non-labored respirations and equal bilateral excursions. No gross wheezes. CARDIOVASCULAR: Irregular rate. Regular rhythm. Extremities without moderate edema. Palpable 2+ radial pulses. ABDOMEN: No hepatomegaly. Soft. Non-tender. Nondistended. LYMPH: No neck lymphadenopathy. No axillary lymphadenopathy. MUSCULOSKELETAL: Range of motion bilateral upper extremities within normal limit s. Nail and fingers with good capillary refill. SKIN: Warm and well perfused with good skin turgor. NEUROLOGIC: Cranial nerves II through XII grossly intact. Sensation upper and extremities intact. No focal or lateralizing signs. PSYCH: Appropriate affect. Alert and oriented to person, place and time. Displays appropriate insight. CLINCAL LABS: Reviewed. Hemoglobin is stable over 12.0 g/dL RADIOLOGY: Report reviewed no pneumoperitoneum IMAGING: Independently reviewed without expanding hematoma on noncontrast CT of the abdomen and pelvis. No bowel obstruction. ASSESSMENT: 1. Left rectus sheath hematoma, traumatic from cough 2. Influenza pneumonia 3. Chronic anticoagulant therapy 4. Ischemic cardiomyopathy with heart failure, diastolic, stage II 5. Chronic H or fibrillation. PLAN: 1. Discontinue all blood thinners including Xarelto, Plavix, aspirin, supplements such as Tumeric, vitamin A, vitamin D, and vitamin E for at least 7 days. 2. Abdominal binder for 7 days 3. Recheck hemoglobin. 4. Expectant management including conservative therapy with abdominal wall com pression 5. Recommend cough suppressants to minimize risk for recurrent trauma to the abdominal wall 6. No surgical intervention needed. 7. Patient clear from a surgical standpoint for discharge once hemoglobin stable for 24-48 hours. Thank you for this kind consultation. Past Medical History Past Medical History: Atrial Fibrillation, Cancer, Heart Failure, Hypertension, Sleep Apnea/CPAP/BIPAP Additional Past Medical History / Comment(s): WEARS C-PAP AT HOME. LEFT SHOULDER ROTATOR CUFF INJURY CURRENTLY, RIGHT SIDE FLOATING RIB FROM OLD INJURY, PROSTATE CANCER WITH REMOVAL OF PROSTATE, Chrons, Multiple Myeloma , uses a cane, pacemaker History of Any Multi-Drug Resistant Organisms: None Reported Past Surgical History: Cholecystectomy, Orthopedic Surgery, Pacemaker, Prostate Surgery Additional Past Surgical History / Comment(s): RIGHT KNEE REPLACED, pacemaker 2018, Past Anesthesia/Blood Transfusion Reactions: Postoperative Nausea & Vomiting (PONV) Type of Cardiac Device: Permanent Pacemaker Device Placement Date:: 2017 Past Psychological History: No Psychological Hx Reported Smoking Status: Former smoker Past Alcohol Use History: Occasional Additional Past Alcohol Use History / Comment(s): QUIT SMOKING 40 YEARS AGO. Past Drug Use History: None Reported - Past Family History Father Family Medical History: Hypertension Additional Family Medical History / Comment(s): LUNG CANCER Mother Family Medical History: Hypertension Additional Family Medical History / Comment(s): LIVED UNTIL 95 YEARS OLD. Medications and Allergies Home Medications Medication Instructions Recorded Confirmed Type Cholecalciferol [Vitamin D3] 1,000 unit PO DAILY 02/20/16 09/22/18 History Folic Acid 1 mg PO HS 02/20/16 09/22/18 History Potassium Chloride [Klor-Con 20] 20 meq PO BID 02/20/16 09/22/18 History Rivaroxaban [Xarelto] 20 mg PO HS 02/20/16 09/22/18 History Nitroglycerin Sl Tabs [Nitrostat] 0.4 mg SUBLINGUAL Q5M PRN #100 tab 02/22/16 09/22/18 Rx Carvedilol [Coreg] 12.5 mg PO BID 09/22/18 09/22/18 History Furosemide [Lasix] 40 mg PO DAILY 09/22/18 09/22/18 History Gabapentin [Neurontin] 300 mg PO BID 09/22/18 09/22/18 History Isosorbide Dinitrate [Isordil] 5 mg PO TID 09/22/18 09/22/18 History Rivaroxaban [Xarelto] 20 mg PO DAILY 09/22/18 09/22/18 History hydrALAZINE HCL [Apresoline] 100 mg PO BID 09/22/18 09/22/18 History Allergies Allergy/AdvReac Type Severity Reaction Status Date / Time meperidine HCl [From Demerol] Allergy BLOOD Verified 09/22/18 07:29 PRESSURE DROPPED Surgical - Exam Vital Signs Temp Pulse Resp BP Pulse Ox 101.1 F H 86 28 H 167/114 96 09/22/18 06:26 09/22/18 06:26 09/22/18 06:26 09/22/18 06:26 09/22/18 06:26 Results - Labs 09/23/18 07:56 09/23/18 07:56 Abnormal Lab Results - Last 24 Hours (Table) 09/22/18 09/22/18 09/23/18 Range/Units 12:26 19:03 07:56 Hgb 12.1 L (13.0-17.5) gm/dL Hct 37.4 L (39.0-53.0) % Neutrophils # 8.4 H (1.3-7.7) k/uL Potassium (3.5-5.1) mmol/L Carbon Dioxide (22-30) mmol/L BUN (9-20) mg/dL Creatinine (0.66-1.25) mg/dL Glucose (74-99) mg/dL Troponin I 0.080 H* 0.064 H* (0.000-0.034) ng/mL 09/23/18 Range/Units 07:56 Hgb (13.0-17.5) gm/dL Hct (39.0-53.0) % Neutrophils # (1.3-7.7) k/uL Potassium 3.3 L (3.5-5.1) mmol/L Carbon Dioxide 33 H (22-30) mmol/L BUN 23 H (9-20) mg/dL Creatinine 1.31 H (0.66-1.25) mg/dL Glucose 124 H (74-99) mg/dL Troponin I (0.000-0.034) ng/mL Microbiology - Last 24 Hours (Table) 09/22/18 06:38 Blood Culture - Preliminary Blood No Growth after 24 hours 09/22/18 20:01 Gram Stain - Preliminary Sputum 09/22/18 09:32 Urine Culture - Preliminary Urine,Voided Diabetes panel 09/23/18 Range/Units 07:56 Sodium 141 (137-145) mmol/L Potassium 3.3 L (3.5-5.1) mmol/L Chloride 101 (98-107) mmol/L Carbon Dioxide 33 H (22-30) mmol/L BUN 23 H (9-20) mg/dL Creatinine 1.31 H (0.66-1.25) mg/dL Glucose 124 H (74-99) mg/dL Calcium 8.8 (8.4-10.2) mg/dL Calcium panel 09/23/18 Range/Units 07:56 Calcium 8.8 (8.4-10.2) mg/dL Pituitary panel 09/23/18 Range/Units 07:56 Sodium 141 (137-145) mmol/L Potassium 3.3 L (3.5-5.1) mmol/L Chloride 101 (98-107) mmol/L Carbon Dioxide 33 H (22-30) mmol/L BUN 23 H (9-20) mg/dL Creatinine 1.31 H (0.66-1.25) mg/dL Glucose 124 H (74-99) mg/dL Calcium 8.8 (8.4-10.2) mg/dL Adrenal panel 09/23/18 Range/Units 07:56 Sodium 141 (137-145) mmol/L Potassium 3.3 L (3.5-5.1) mmol/L Chloride 101 (98-107) mmol/L Carbon Dioxide 33 H (22-30) mmol/L BUN 23 H (9-20) mg/dL Creatinine 1.31 H (0.66-1.25) mg/dL Glucose 124 H (74-99) mg/dL Calcium 8.8 (8.4-10.2) mg/dL - Imaging CT scan - abdomen: report reviewed, image reviewed CT scan - pelvis: report reviewed, image reviewed Assessment and Plan (1) ACC/AHA stage B systolic heart failure due to ischemic cardiomyopathy Current Visit: Yes Status: Acute Code(s): I50.20 - UNSPECIFIED SYSTOLIC (CONGESTIVE) HEART FAILURE; I25.5 - ISCHEMIC CARDIOMYOPATHY SNOMED Code(s): 26972181105219588 (2) Anticoagulated by anticoagulation treatment Current Visit: Yes Status: Acute Code(s): Z79.01 - THEOLOGY TEACHER (CURRENT) USE OF ANTICOAGULANTS SNOMED Code(s): 644037447 (3) Rectus sheath hematoma Current Visit: Yes Status: Acute Code(s): S30.1XXA - CONTUSION OF ABDOMINAL WALL, INITIAL ENCOUNTER SNOMED Code(s): 126527010 (4) Neuropathy Current Visit: Yes Status: Acute Code(s): G62.9 - POLYNEUROPATHY, UNSPECIFIED SNOMED Code(s): 369475106 (5) History of prostate cancer Current Visit: Yes Status: Acute Code(s): Z85.46 - PERSONAL HISTORY OF MALIGNANT NEOPLASM OF PROSTATE SNOMED Code(s): 299057114 (6) Obstructive sleep apnea (adult) (pediatric) Current Visit: Yes Status: Acute Code(s): G47.33 - OBSTRUCTIVE SLEEP APNEA (ADULT) (PEDIATRIC) SNOMED Code(s): 29604280 (7) Chronic a-fib Current Visit: Yes Status: Acute Code(s): I48.2 - CHRONIC ATRIAL FIBRILLATION SNOMED Code(s): 278557477 (8) Influenza Current Visit: Yes Status: Acute Code(s): J11.1 - FLU DUE TO UNIDENTIFIED INFLUENZA VIRUS W OTH RESP MANIFEST SNOMED Code(s): 9168424 (9) Pneumonia Current Visit: Yes Status: Acute Code(s): J18.9 - PNEUMONIA, UNSPECIFIED ORGANISM SNOMED Code(s): 024318289
--- NOTE | 2018-09-23 13:53 | CONS ---
CONSULTATION CHIEF COMPLAINT: Elevated troponin. Mika is a 77-year-old gentleman with history of atrial fibrillation, who is admitted to hospital with influenza A. He has severe bouts of coughing and apparently has a tear in his abdominal muscle and had a hematoma. He has a pacemaker. The pacemaker is functioning normally and follows with a property claims adjuster at [facility]. His anticoagulant is on hold because of the abdominal wall hematoma. His troponins are mildly elevated for which Cardiology had been consulted. There is no history of coronary artery disease or congestive heart failure. MEDICATIONS: At home include Xarelto, Isordil, Klor-Con, Lasix, Neurontin, folic acid, Coreg, and sublingual nitroglycerin. ALLERGIES: The patient is allergic to DEMEROL. FAMILY HISTORY: Family history is negative for premature coronary artery disease. SOCIAL HISTORY: Negative for current smoking, EtOH abuse, or drug abuse. REVIEW OF SYSTEMS: HEENT is unremarkable. CARDIAC: As described above. RESPIRATORY: As described above. GI: Negative. SKIN: Negative. MUSCULOSKELETAL: Significant for arthritis. PSYCHOSOCIAL: Negative. ENDOCRINE: Negative. DERM: Negative. CONSTITUTIONAL: Negative. ONCOLOGICAL: Negative. The rest of the system review is not relevant. PHYSICAL EXAMINATION: On exam, heart rate is 60 beats, blood pressure is 122/84, respiratory rate is 18. Chest exam reveals good air entry bilaterally. There are no crackles or rhonchi. Heart exam reveals first and second heart sounds. No gallop. Abdomen is soft. Exam of extremities did not reveal any edema. Peripheral pulses are felt. LAB: Show a hemoglobin of 12, platelet count is 150, potassium is 3.3. Troponins are in the tripathi zone at 0.07, 0.08 and 0.06. ASSESSMENT: 1. Mild troponin elevation probably related to influenza A. Will obtain a 2D echo to assess LV function and wall motion. 2. History of atrial fibrillation. 3. Status post permanent pacemaker. PLAN: Hold the anticoagulant until it is safe to resume it as per Surgery. Please supplement the potassium. No other cardiac workup at this time. MMODL / IJN: [id number] /
[2018-09-23] MEDS: FOLIC ACID 1 MG TAB PO SCH (20:15)
[2018-09-24] MEDS ORDERED: POTASSIUM CHLORIDE ER 20 MEQ TAB.ER PO STA (07:21)
[2018-09-24] MEDS: HYDROmorphone 0.5 MG/0.5 ML SYRINGE IVP PRN ×2 (07:42→11:48)
[2018-09-24] MEDS: CARVEDILOL 12.5 MG TAB PO SCH ×2 (07:46→17:19)
[2018-09-24] MEDS: POTASSIUM CHLORIDE ER 20 MEQ TAB.ER PO SCH ×2 (07:46→21:43)
[2018-09-24] MEDS: ISOSORBIDE DINITRATE 10 MG TAB PO SCH ×3 (07:46→21:43)
[2018-09-24] MEDS: hydrALAZINE HCL 50 MG TAB PO SCH ×2 (07:46→21:43)
[2018-09-24] MEDS: CHOLECALCIFEROL 1,000 UNIT TAB PO SCH (07:46)
[2018-09-24] MEDS: GABAPENTIN 300 MG CAP PO SCH ×2 (07:46→21:43)
[2018-09-24] MEDS: OSELTAMIVIR 60 MG/10 ML ORAL SYRINGE PO SCH ×2 (07:47→21:44)
[2018-09-24] MEDS: FUROSEMIDE 20 MG TAB PO SCH (07:51)
--- NOTE | 2018-09-24 08:17 | XR ---
EXAMINATION TYPE: XR chest 2V DATE OF EXAM: 09/24/2018 COMPARISON: Prior chest x-ray 09/23/2018 HISTORY: Viral pneumonia TECHNIQUE: Frontal and lateral views of the chest are obtained. FINDINGS: Prominent lung volumes and interstitium are present. The aorta is dense and aneurysmal, to rtuous. Multiple old right-sided rib fractures are present. Pacemaker is stable. No evident pneumotho rax. No pleural effusion. Heart is enlarged. IMPRESSION: Stable findings. Cardiomegaly. Aortic aneurysm. Interstitial lung disease
[2018-09-24] MEDS: IPRATROPIUM-ALBUTEROL 3 ML NEB INHALATION SCH ×4 (08:25→21:30)
[2018-09-24 08:37] LABS: Calcium 8.7 mg/dL (8.4-10.2); Potassium 3.6 mmol/L (3.5-5.1)
[2018-09-24] MEDS: AZITHROMYCIN 250 MG TAB PO SCH (08:41)
[2018-09-24] MEDS: HYDROcodone/APAP 5-325MG 1 EACH TAB PO PRN (08:41)
[2018-09-24 08:52] LABS: Basophils % (A) 0 %; Eosinophils % (A) 0 %; HCT 36.5 % (39.0-53.0); HGB 12.1 gm/dL (13.0-17.5); Lymphocytes # (A) 1.4 k/uL (1.0-4.8); Lymphocytes % (A) 16 %; MCH 28.5 pg (25.0-35.0); MCHC 33.3 g/dL (31.0-37.0); MCV 85.5 fL (80.0-100.0); Mean Platelet Volume 8.1; Monocytes # (A) 0.5 k/uL (0-1.0); Monocytes % (A) 5 %; Neutrophils # (A) 6.9 k/uL (1.3-7.7); Neutrophils % (A) 77 %; Platelet Count 171 k/uL (150-450); RBC 4.26 m/uL (4.30-5.90); RDW 15.5 % (11.5-15.5); WBC 8.9 k/uL (3.8-10.6)
[2018-09-24] MEDS ORDERED: PROMETHAZ-COD 6.25-10 MG/5 ML 5 ML CUP PO PRN (09:47)
[2018-09-24] MEDS: predniSONE 20 MG TAB PO SCH (10:21)
--- NOTE | 2018-09-24 12:28 | P.PN ---
Subjective Progress Note Date: 09/24/18 Patient seen and examined at bedside reported poor sleep overnight, reports ongoing wheezing and coughing at night which worsens the pain his left rectus abdominis hematoma. The patient has not been up and ambulatory. Chest x-ray this morning suggesting interstitial lung disease Objective - Vital Signs Vital signs: Vital Signs Temp 97.4 F L 09/24/18 05:00 Pulse 68 09/24/18 12:00 Resp 18 09/24/18 08:00 BP 146/94 09/24/18 05:00 Pulse Ox 98 09/24/18 05:00 Intake & Output 09/23/18 09/24/18 09/24/18 18:59 06:59 18:59 Intake Total 480 Balance 480 Intake: Oral 480 Other: Voiding Method Urinal # Voids 3 2 - Exam Constitutional: No acute distress, conversant, pleasant Eyes: Anicteric sclerae, moist conjunctiva, no lid-lag, PERRLA ENMT: NC/AT,Oropharynx clear, no erythema, exudates Neck:Supple, FROM, no masses, or JVD, No carotid bruits; No thyromegaly Lungs: Faint expiratory wheezes, Normal respiratory effort, no accessory muscle use Cardiovascular: Heart regular in rate and rhythm, No murmurs, gallops, or rubs no peripheral edema Abdominal: Abdominal binder in place previously Soft Nontender, nom distended, no guarding, no rebound or rigidity, Normoactive bowel sounds No hepatomegaly, No splenomegaly, No palpable mass No abdominal wall hernia noted Skin: Normal temperature, tone, texture, turgor, No induration No subcutaneous nodules, No rash, lesions, No ulcers Extremities:No digital cyanosis No clubbing, Pedal pulses intact and symmetrical Radial pulses intact and symmetrical Normal gait and station, No calf tenderness Psychiatric: Alert and oriented to person, place and time, Appropriate affect Intact judgement Neuro: Muscles Strength 5/5 in all 4 extremities, Sensation to light touch grossly present throughout, Cranial nerves II-XII grossly intact. No focal sensory deficits - Labs CBC & Chem 7: 09/24/18 07:44 09/24/18 07:44 Labs: Abnormal Lab Results - Last 24 Hours (Table) 09/24/18 09/24/18 Range/Units 07:44 07:44 RBC 4.26 L (4.30-5.90) m/uL Hgb 12.1 L (13.0-17.5) gm/dL Hct 36.5 L (39.0-53.0) % Carbon Dioxide 36 H (22-30) mmol/L BUN 27 H (9-20) mg/dL Creatinine 1.38 H (0.66-1.25) mg/dL Microbiology - Last 24 Hours (Table) 09/22/18 20:01 Gram Stain - Final Sputum Sputum Culture - Final 09/22/18 06:38 Blood Culture - Preliminary Blood No Growth after 48 hours 09/22/18 09:32 Urine Culture - Final Urine,Voided Assessment and Plan (1) Sepsis Narrative/Plan: * Secondary to influenza versus pneumonia * Follow-up chest x-ray this morning suggesting interstitial lung disease * Patient afebrile without leukocytosis * Continue regimen of azithromycin and Tamiflu * Hemodynamically stable Current Visit: Yes Status: Resolved Code(s): A41.9 - SEPSIS, UNSPECIFIED ORGANISM SNOMED Code(s): 04142404 (2) Pneumonia Narrative/Plan: * We'll continue Rocephin and azithromycin Current Visit: Yes Status: Acute Code(s): J18.9 - PNEUMONIA, UNSPECIFIED ORGANISM SNOMED Code(s): 501134351 (3) Influenza Narrative/Plan: * Continue treatment with Tamiflu Current Visit: Yes Status: Acute Code(s): J11.1 - FLU DUE TO UNIDENTIFIED INFLUENZA VIRUS W OTH RESP MANIFEST SNOMED Code(s): 3173069 (4) Exertional dyspnea Narrative/Plan: * Secondary to flu and pneumonia * CXR suggesting ILD continues to wheeze, initiate a steroid burst with prednisone * Plan to consult pulmonary for further recommendations Current Visit: Yes Status: Acute Code(s): R06.09 - OTHER FORMS OF DYSPNEA SNOMED Code(s): 14041515 (5) Rectus sheath hematoma Narrative/Plan: * Continues to to have some discomfort exacerbated by his cough will add cough suppressant * Traumatic secondary to cough, hemoglobin continues to be stable at 12 * Continue general surgery recommendations patient abdominal binder * Continue to hold anticoagulation and antiplatelet therapy Current Visit: Yes Status: Acute Code(s): S30.1XXA - CONTUSION OF ABDOMINAL WALL, INITIAL ENCOUNTER SNOMED Code(s): 920436406 (6) Chronic a-fib Narrative/Plan: * Rate controlled stable * Continue beta herbert Coreg, anticoagulation with Xarelto held momentarily due to rectus sheath hematoma Current Visit: Yes Status: Chronic Code(s): I48.2 - CHRONIC ATRIAL FIBRILLATION SNOMED Code(s): 120890411 (7) Elevated troponin Narrative/Plan: * Likely secondary to sepsis, echocardiogram ordered * Cardiology consulted Current Visit: Yes Status: Acute Code(s): R74.8 - ABNORMAL LEVELS OF OTHER SERUM ENZYMES SNOMED Code(s): 291614770 (8) Hypokalemia Narrative/Plan: * Replace and recheck Current Visit: Yes Status: Acute Code(s): E87.6 - HYPOKALEMIA SNOMED Code(s): 52895546 (9) Thoracic aortic aneurysm without rupture Narrative/Plan: * CT abdomen confirming thoracic aortic aneurysm approximately 4.7 cm Current Visit: Yes Status: Acute Code(s): I71.2 - THORACIC AORTIC ANEURYSM, WITHOUT RUPTURE SNOMED Code(s): 63075704 Plan: * We'll continue to monitor follow-up consultants recommendations * Anticipate discharge in 1-2 days
--- NOTE | 2018-09-24 13:47 | P.PN ---
Subjective This is a pleasant 77-mulugeta-old male past medical history significant for chronic persistent atrial fibrillation on long term care social worker anti-coagulation, permanent pacemaker implantation, hypertension, multiple myeloma and obstructive sleep apnea. He follows with a donor relations officer in [place] at [facility], Dr. Agosto. We are following him secondary to mild troponin elevation on admission secondary to influenza. He is currently being treated for a left rectus sheath hematoma secondary to coughing along with Influenza A. He has seen and examined laying flat in bed. He complains of significant discomfort to his abdomen that is made worse with any sort of movement or coughing. He denies symptoms of chest discomfort, shortness of breath, dizziness or palpitations. He states he continues to cough is having a hard time clearing his secretions secondary to the inability to cough deeply. Blood pressure 120/78 heart rate 60 afebrile maintaining oxygen saturation on nasal cannula. Laboratory data reviewed, WBC 8.9, hemoglobin 12.1, platelets 171, sodium 140, potassium 3.6, creatinine 1.38. Currently maintained on carvedilol 12.5 mg twice a day, Lasix 20 mg daily, hydralazine 100 mg twice a day and isosorbide dinitrate 5 mg 3 times a day. Xarelto continues to be on hold. GENERAL: Well-appearing, well-nourished and in no acute distress. NECK: Supple without JVD or thyromegaly. LUNGS: Scattered expiratory wheezes noted. No rales or rhonchi. Respiration equal and unlabored. Diminished bilaterally. HEART: Irregular rate and rhythm without murmurs, rubs or gallops. S1 and S2 heard. EXTREMITIES: Normal range of motion, no edema. No clubbing or cyanosis. Peripheral pulses intact. ASSESSMENT Rectus sheath hematoma secondary to traumatic cough Chronic persistent atrial fibrillation, xarelto held since admission Mild troponin leak, not indicative of an acute coronary event. Probably secondary to Influenza and sepsis Influenza A Sepsis Hypokalemia, improved History of mild non-obstructive CAD per cath in 2016 Permanent pacemaker implantation PLAN Resume his PO lasix at 20 mg daily. Pain management with norco and dilaudid. Incentive spirometer to the bedside. Will review echocardiogram. Nurse Practitioner note has been reviewed, I agree with a documented findings and plan of care. Patient was seen and examined. Objective - Vital Signs Vital signs: Vital Signs Temp 98.1 F 09/24/18 12:14 Pulse 60 09/24/18 12:14 Resp 18 09/24/18 12:14 BP 128/78 09/24/18 12:14 Pulse Ox 98 09/24/18 05:00 Intake & Output 09/23/18 09/24/18 09/24/18 18:59 06:59 18:59 Intake Total 480 Balance 480 Intake: Oral 480 Other: Voiding Method Urinal # Voids 3 2 - Labs CBC & Chem 7: 09/24/18 07:44 09/24/18 07:44 Labs: Abnormal Lab Results - Last 24 Hours (Table) 09/24/18 09/24/18 Range/Units 07:44 07:44 RBC 4.26 L (4.30-5.90) m/uL Hgb 12.1 L (13.0-17.5) gm/dL Hct 36.5 L (39.0-53.0) % Carbon Dioxide 36 H (22-30) mmol/L BUN 27 H (9-20) mg/dL Creatinine 1.38 H (0.66-1.25) mg/dL Microbiology - Last 24 Hours (Table) 09/22/18 20:01 Gram Stain - Final Sputum Sputum Culture - Final 09/22/18 06:38 Blood Culture - Preliminary Blood No Growth after 48 hours 09/22/18 09:32 Urine Culture - Final Urine,Voided
--- NOTE | 2018-09-24 14:14 | P.PN ---
Subjective Progress Note Date: 09/24/18 Principal diagnosis: Rectus sheath hematoma Patient feels better today. Less pain with coughing or moving. Hemoglobin stable. He is tolerating his diet. No nausea or vomiting. Objective - Vital Signs Vital signs: Vital Signs Temp 98.1 F 09/24/18 12:14 Pulse 60 09/24/18 12:14 Resp 18 09/24/18 12:14 BP 128/78 09/24/18 12:14 Pulse Ox 98 09/24/18 05:00 Intake & Output 09/23/18 09/24/18 09/24/18 18:59 06:59 18:59 Intake Total 480 Balance 480 Intake: Oral 480 Other: Voiding Method Urinal # Voids 3 2 - Exam Mild tenderness left superior rectus sheath, slight induration, no ecchymosis - Labs CBC & Chem 7: 09/24/18 07:44 09/24/18 07:44 Labs: Abnormal Lab Results - Last 24 Hours (Table) 09/24/18 09/24/18 Range/Units 07:44 07:44 RBC 4.26 L (4.30-5.90) m/uL Hgb 12.1 L (13.0-17.5) gm/dL Hct 36.5 L (39.0-53.0) % Carbon Dioxide 36 H (22-30) mmol/L BUN 27 H (9-20) mg/dL Creatinine 1.38 H (0.66-1.25) mg/dL Microbiology - Last 24 Hours (Table) 09/22/18 20:01 Gram Stain - Final Sputum Sputum Culture - Final 09/22/18 06:38 Blood Culture - Preliminary Blood No Growth after 48 hours 09/22/18 09:32 Urine Culture - Final Urine,Voided Assessment and Plan (1) Rectus sheath hematoma Narrative/Plan: Patient with left rectus sheath hematoma. Doing well at this time. No further surgical intervention warranted. We'll sign off. Please call if needed. Current Visit: Yes Status: Acute Code(s): S30.1XXA - CONTUSION OF ABDOMINAL WALL, INITIAL ENCOUNTER SNOMED Code(s): 278671206
--- NOTE | 2018-09-24 18:25 | CONS ---
CONSULTATION REASON FOR CONSULTATION: This is a consultation for shortness of breath. HISTORY OF PRESENT ILLNESS: This is a 77-year-old male who presented to the emergency department via EMS. He apparently developed flu-like illness. He had fever and chills. He has some nausea and vomiting. He also had a nonproductive cough with generalized malaise. The patient apparently talked to his son who called EMS. The patient was noted to be mildly hypoxemic and had increased work of breathing. He received a breathing treatment and some Solu-Medrol IV. He was transported to the hospital for further evaluation. In the emergency room, he apparently tested positive for influenza. The patient was admitted with a diagnosis of influenza. We were consulted primarily because the patient was found to have some interstitial changes on chest x-ray and there was some concern about interstitial lung disease. Prior to this, the patient denies any history of any lung issues. He states that he really does not have any evidence of COPD, asthma, chronic or acute bronchitis, pneumonia, or any other abnormalities with his lungs. He was not on any oxygen at home and had not received any breathing treatments at home. He has never seen a lung doctor in the past. HOME MEDICATIONS: Include vitamin D3, folic acid, potassium, Xarelto, Coreg, Lasix, Neurontin, Isordil, Xarelto and Apresoline. Also takes sublingual nitroglycerin. ALLERGIES: ALLERGIES ARE MEPERIDINE. MEDICAL HISTORY: Atrial fibrillation, hypertension, sleep apnea syndrome, currently on CPAP, prostate cancer with prostatectomy and multiple myeloma. He also has apparently had left shoulder rotator cuff injury in the past, has had multiple orthopedic procedures, prostatectomy, cholecystectomy, and right knee replacement. SOCIAL HISTORY: Positive for previous remote tobacco history. He only smoked for few years many years back. Denies any illicit drug use. Uses alcohol very occasionally. FAMILY HISTORY: Positive for lung cancer and hypertension. REVIEW OF SYSTEMS: CONSTITUTIONAL: Flu-like illness including fatigue, weakness, malaise, muscle aches, joint aches and cough. Neurologic negative. HEENT negative. Cardiovascular negative. Pulmonary: Mild shortness of breath, dry non-productive cough. GI, nausea, vomiting. : Negative. RHEUMATOLOGIC: Negative. Immunologic negative. ENDOCRINOLOGIC/DERMATOLOGIC: Negative. PHYSICAL EXAMINATION: Current vital signs are reviewed. Temperature is 98.1. Heart rate 60, respiratory rate 18, blood pressure 128/78. Mean 94, saturations on 2 L 98%. Appears in no acute distress. HEENT examination is grossly unremarkable. Mucous membranes are moist. No oral lesions. NECK: Supple. Full range of motion. No adenopathy or thyromegaly. Neck veins are flat. Cardiovascular examination reveals regular rhythm rate. Heart rate in the mid 60s. S1, S2 normal. No S3, S4, or murmur. LUNGS: A few scattered rhonchi. No wheezes or crackles. Breath sounds equal bilaterally. ABDOMEN: Soft. Bowel sounds are heard. Extremities are intact. No cyanosis, clubbing, or edema. Skin without rash. Neurologic examination is brief but nonfocal. X-RAY: Shows some very minimal interstitial changes. It probably relates to interstitial pneumonitis or atypical infections from influenza i.e. viral pneumonia. The abdominal CT scan, particularly in the upper portions of the abdomen and lower portions of the lung, failed to reveal any significant interstitial lung disease. LAB DATA: Reviewed. White count 8.9, hemoglobin 12.1, hematocrit 36.5, platelet count 171,000. Sodium 140, potassium 3.6, chloride 101, CO2 36, anion gap 3. BUN and creatinine were 27, 1.38. Urine is negative. Troponins were 0.080 0.064. Microbiologic studies are all thus far all negative. Medications are reviewed. The patient is on updrafts, Zithromax, Tamiflu and cough medicine with codeine. ASSESSMENT: 1. Viral pneumonitis, secondary to influenza. I seriously doubt any chronic interstitial lung disease as it is not seen on the CT scan. 2. History of chronic atrial fibrillation. 3. History of prostate cancer, status post prostatectomy. 4. Benign essential hypertension. 5. Sleep apnea syndrome, currently on CPAP. 6. History of multiple myeloma. 7. Chronic orthopedic injuries and orthopedic procedures. 8. Multiple other medical problems and comorbidities. PLAN: I told Mr. Engle that I would see him in the outpatient setting. Likely at that time, pulmonary function test will be done. In addition, the patient will likely get a 6 minute walk distance and also get a high-resolution CT scan if there were any concerns about interstitial lung disease. For the current time, treatment is appropriate. I do not believe he needs an oral antibiotic. He could probably get by just with the Tamiflu and breathing treatments. We will see as needed. No additional recommendations are made. Prognosis is good. MMODL / IJN: [id number] /
[2018-09-24] MEDS: FOLIC ACID 1 MG TAB PO SCH (21:44)
[2018-09-25] MEDS: HYDROcodone/APAP 5-325MG 1 EACH TAB PO PRN (03:48)
[2018-09-25 07:42] LABS: Basophils % (A) 0 %; Eosinophils % (A) 0 %; HCT 31.7 % (39.0-53.0); HGB 10.3 gm/dL (13.0-17.5); Lymphocytes # (A) 1.4 k/uL (1.0-4.8); Lymphocytes % (A) 18 %; MCH 27.9 pg (25.0-35.0); MCHC 32.3 g/dL (31.0-37.0); MCV 86.3 fL (80.0-100.0); Mean Platelet Volume 7.3; Monocytes # (A) 0.4 k/uL (0-1.0); Monocytes % (A) 5 %; Neutrophils # (A) 5.9 k/uL (1.3-7.7); Neutrophils % (A) 75 %; Platelet Count 141 k/uL (150-450); RBC 3.68 m/uL (4.30-5.90); RDW 15.1 % (11.5-15.5); WBC 7.8 k/uL (3.8-10.6)
[2018-09-25 08:00] LABS: Calcium 8.5 mg/dL (8.4-10.2); Potassium 3.7 mmol/L (3.5-5.1)
[2018-09-25] MEDS: FUROSEMIDE 20 MG TAB PO SCH (08:32)
[2018-09-25] MEDS: AZITHROMYCIN 250 MG TAB PO SCH (08:32)
[2018-09-25] MEDS: CHOLECALCIFEROL 1,000 UNIT TAB PO SCH (08:32)
[2018-09-25] MEDS: CARVEDILOL 12.5 MG TAB PO SCH (08:32)
[2018-09-25] MEDS: GABAPENTIN 300 MG CAP PO SCH (08:33)
[2018-09-25] MEDS: OSELTAMIVIR 60 MG/10 ML ORAL SYRINGE PO SCH (08:33)
[2018-09-25] MEDS: POTASSIUM CHLORIDE ER 20 MEQ TAB.ER PO SCH (08:33)
[2018-09-25] MEDS: ISOSORBIDE DINITRATE 10 MG TAB PO SCH (08:33)
[2018-09-25] MEDS: hydrALAZINE HCL 50 MG TAB PO SCH (08:33)
[2018-09-25] MEDS: predniSONE 20 MG TAB PO SCH (08:34)
[2018-09-25] MEDS: IPRATROPIUM-ALBUTEROL 3 ML NEB INHALATION SCH ×3 (08:37→15:18)
[2018-09-25 11:57] VITALS: BP 129/86; PULSE 65; RESP 17; TEMP 98.5
--- NOTE | 2018-09-25 12:23 | PN ---
PROGRESS NOTE DATE OF SERVICE: September 25, 2018 This is a very pleasant 77-year-old male who we saw yesterday in consultation. The patient was thought to have influenza pneumonitis. We thought that he might have some interstitial lung disease, but he had no prior history of any lung issues. Nonetheless, the patient will see us in the office post discharge. He tells us that he might be discharged today. He is feeling much better. Still on nasal O2. Sitting at the bedside. He does have a history of chronic atrial fibrillation, prostate cancer, status post prostatectomy, hypertension, sleep apnea syndrome, multiple myeloma, and other medical problems as listed. I did tell him that he needs to finish Tamiflu for a total of 5 days twice a day. He understands. Current vital signs are reviewed. His temperature is 97.8 heart rate is 76, respiratory rate is 20, blood pressure 145/98, mean 113. Saturation on a couple L is 97%. Appears in no acute distress. HEENT: Examination is grossly unremarkable. Mucous membranes are moist. No oral lesions. NECK: Supple. Full range of motion. No adenopathy or thyromegaly. Neck veins are flat. CARDIOVASCULAR: Examination reveals regular rhythm rate. S1, S2 normal. No S3, S4, or murmur. LUNGS: Reveal some mild crackles bilaterally. I believe this relates to his viral pneumonitis. No wheezes. No rhonchi. Breath sounds equal bilaterally. He is not particularly restricted in his breathing. ABDOMEN: Soft. Bowel sounds are heard. EXTREMITIES: Are intact. No cyanosis, clubbing, or edema. SKIN: Is without rash. NEUROLOGIC: Examination is brief but nonfocal. Labs are reviewed. White count 7.8, hemoglobin 10.3, hematocrit 31.7, platelet count 141,000. Sodium 138, potassium 3.7, chloride is 102, CO2 is 32. Anion gap is 4. BUN and creatinine were 26 and 1.16. Chest x-ray was reviewed from yesterday. Medications are reviewed. ASSESSMENT: 1. Viral pneumonitis, secondary to influenza. I seriously doubt any chronic interstitial lung disease as it is not currently seen on CT scan and the patient really has no prior history of any lung symptoms. 2. History of chronic atrial fibrillation. 3. History of prostate cancer, status post prostatectomy. 4. Benign essential hypertension. 5. Sleep apnea syndrome, currently on CPAP. 6. History of multiple myeloma. 7. History of chronic orthopedic injuries and orthopedic procedures. PLAN: The patient in our opinion could be discharged home. He will follow up with me in the office. He will get a 6-minute walk distance, possibly a high-resolution CT scan and complete pulmonary function test. Should he have ILD, we will let him know, although I doubt that he has anything chronically going on. This likely represents interstitial changes from his viral/influenza pneumonitis. MMODL / IJN: [id number] / SHAYE
--- NOTE | 2018-09-25 12:37 | ECHOF ---
Referral Reason:abn trop MEASUREMENTS -------- HEIGHT: 175.3 cm WEIGHT: 102.1 kg BP: 146/94 RVIDd: 3.9 cm (< 3.3) IVSd: 1.6 cm (0.6 - 1.1) LVIDd: 5.4 cm (3.9 - 5.3) LVPWd: 1.5 cm (0.6 - 1.1) IVSs: 2.0 cm LVIDs: 3.7 cm LVPWs: 2.1 cm LA Diam: 4.7 cm (2.7 - 3.8) LAESV Index (A-L): 55.12 ml/m Ao Diam: 3.1 cm (2.0 - 3.7) AV Cusp: 1.5 cm (1.5 - 2.6) EPSS: 0.9 cm AV maxP.13 mmHg AV meanP.50 mmHg AR PHT: 1586 ms RAP: 5.00 mmHg RVSP: 30.27 mmHg MV EF SLOPE: 68.77 mm/s (70 - 150) MV EXCURSION: 1.72 cm (> 18.000) FINDINGS -------- Paced rhythm. This was a technically adequate study. The left ventricular size is normal. There is moderate concentric left ventricular hypertrophy. O verall left ventricular systolic function is mild-moderately impaired with, an EF between 40 - 45 %. The right ventricle is moderately enlarged. LA is severely dilated >40 ml/m2 The right atrium is normal in size. Interatrial and interventricular septum intact. There is mild aortic valve sclerosis. Peak/mean gradient across the Aortic Valve is 12.13mmHg / 6.5 0mmHg. The mitral valve leaflets are mildly thickened. Mild mitral annular calcification present. Mild m itral regurgitation is present. Mild tricuspid regurgitation present. Right ventricular systolic pressure is normal at < 35 mmHg. The pulmonic valve was not well visualized. The aortic root size is normal. IVC Not well visulized. There is a trivial pericardial effusion present. CONCLUSIONS -------- 1. Paced rhythm. 2. This was a technically adequate study. 3. The left ventricular size is normal. 4. There is moderate concentric left ventricular hypertrophy. 5. Overall left ventricular systolic function is mild-moderately impaired with, an EF between 40 - 45 %. 6. The right ventricle is moderately enlarged. 7. LA is severely dilated >40 ml/m2 8. The right atrium is normal in size. 9. Interatrial and interventricular septum intact. 10. There is mild aortic valve sclerosis. 11. Peak/mean gradient across the Aortic Valve is 12.13mmHg / 6.50mmHg. 12. The mitral valve leaflets are mildly thickened. 13. Mild mitral annular calcification present. 14. Mild mitral regurgitation is present. 15. Mild tricuspid regurgitation present. 16. Right ventricular systolic pressure is normal at < 35 mmHg. 17. The pulmonic valve was not well visualized. 18. The aortic root size is normal. 19. IVC Not well visulized. 20. There is a trivial pericardial effusion present. NUT ORCHARDIST: YANA Randolph
--- NOTE | 2018-09-25 18:26 | P.DS ---
Providers Date of admission: 09/22/18 07:26 Expected date of discharge: 09/25/18 Attending physician: Evan Catnu MD Consults: 09/22/18 12:59 Consult Physician Routine Consulting Provider: Suzan Cheung Consult Reason/Comments: Elevated troponin Do you want consulting provider notified?: Yes 09/24/18 09:47 Consult Physician Routine Consulting Provider: Velma Garcia Consult Reason/Comments: ILD, SOA Do you want consulting provider notified?: Yes Primary care physician: Physician Nonstaff Hospital Course: Discharge Diagnosis: Influenza a with sepsis Viral pneumonia Rectus sheet hematoma Thoracic aortic aneurysm without rupture 4.7 c, asymptomatic Elevated troponin secondary to sepsis 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 In the emergency department he underwent an extensive evaluation. He was found to have a fever of 101.1 on arrival along with a respiratory rate 28. His blood pressure is elevated at 167/114. Initial laboratory analysis showed platelets of 144, creatinine of 1.4, bilirubin 1.5, an elevated troponin of 0.07. He was found to be influenza A positive. In the ER he was started on Tamiflu and he was admitted for further evaluation secondary to his sepsis. Initial lactic acid was 1.2. There is concern for pneumonia on chest x-ray he was also started on Rocephin and Zithromax. He was placed on bronchodilators and supplemental oxygen. He was continued on his aspirin, Coreg, Lasix, nitrates, and Xarelto. He developed significant left-sided abdominal pain after paroxysms of coughing overnight on 09/22. He underwent a CT of the abdomen which showed left rectus abdominis hematoma versus mass. General surgery was consulted and recommended abdominal binder, hold Xarelto 7 days, and monitoring of hemoglobin. He was also noted to have a thoracic aortic aneurysm which per the patient appears to be known. He was seen by cardiology who recommended echocardiogram. This showed an ejection fraction of 40-45%. Case discussed with nurse practitioner from cardiology who states this is a known low EF and is not a change for the patient. Patient was up and ambulating in hallways. He was seen by pulmonary and has been cleared for discharge. He will follow-up in the pulmonary office in one week for further evaluation of possible COPD as he has had frequent difficulty in breathing at home. He has an appointment scheduled with his stock tracer for follow-up as an outpatient. He'll also follow-up with his primary care physician Dr. Claire in the next 3-5 days. It was determined that his pneumonia was likely secondary to viral illness or atypical pneumonia. His Rocephin was stopped. He will complete an additional 5 doses of Tamiflu to finish his course as well as an additional 2 days of Zithromax. He was given explicit instructions to return to the hospital if there are signs of worsening of his pneumonia or his hematoma. Daughter was present during discharge instructions and all questions answered. Patient seen and examined at bedside. Shortness of breath improved, no chest pain, no nausea or vomiting. Has been up and ambulating in the hallways and doing well. 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 Vital signs reviewed and stable. General: non toxic, no distress, appears at stated age Derm: warm, dry Head: atraumatic, normocephalic, symmetric Eyes: EOMI, no lid lag, anicteric sclera Mouth: no lip lesion, mucus membranes moist Cardiovascular: S1S2 reg, no murmur, positive posterior tibial pulse bilateral, Lungs: CTA bilateral, no rhonchi, no rales , no accessory muscle use Abdominal: soft, nontender to palpation, no guarding, no appreciable organomegaly Ext: no gross muscle atrophy, no edema, no contractures Neuro: CN II-XI grossly intact, no focal neuro deficits Psych: Alert, oriented, appropriate affect A total of 35 minutes of time were spent preparing this complex discharge summary . Pertinent Studies: CT abdomen-hyperdensity and thickening seen in the left rectus muscle which could potentially represent intramuscularly hematoma or mass lesion, aneurysmal dilatation of descending thoracic aortic medical aneurysm measuring up to 4.7 cm Chest [id number] lung opacities more prominent in the lower lungs Patient Condition at Discharge: Stable Plan - Discharge Summary Discharge Rx Participant: Yes New Discharge Prescriptions: New guaiFENesin [Mucinex] 600 mg PO BID PRN #60 tab.er.12h PRN Reason: Cough predniSONE 40 mg PO DAILY #4 tab Azithromycin [Zithromax] 250 mg PO DAILY #2 tab Oseltamivir [Tamiflu] 75 mg PO Q12HR #5 cap Continue Cholecalciferol [Vitamin D3] 1,000 unit PO DAILY Potassium Chloride [Klor-Con 20] 20 meq PO BID Folic Acid 1 mg PO HS Nitroglycerin Sl Tabs [Nitrostat] 0.4 mg SUBLINGUAL Q5M PRN #100 tab PRN Reason: Chest Pain Furosemide [Lasix] 40 mg PO DAILY Isosorbide Dinitrate [Isordil] 5 mg PO TID Gabapentin [Neurontin] 300 mg PO BID Carvedilol [Coreg] 12.5 mg PO BID hydrALAZINE HCL [Apresoline] 100 mg PO BID Discontinued Rivaroxaban [Xarelto] 20 mg PO HS Rivaroxaban [Xarelto] 20 mg PO DAILY Discharge Medication List Cholecalciferol [Vitamin D3] 1,000 unit PO DAILY 02/20/16 [History] Folic Acid 1 mg PO HS 02/20/16 [History] Potassium Chloride [Klor-Con 20] 20 meq PO BID 02/20/16 [History] Nitroglycerin Sl Tabs [Nitrostat] 0.4 mg SUBLINGUAL Q5M PRN #100 tab 02/22/16 [Rx] Carvedilol [Coreg] 12.5 mg PO BID 09/22/18 [History] Furosemide [Lasix] 40 mg PO DAILY 09/22/18 [History] Gabapentin [Neurontin] 300 mg PO BID 09/22/18 [History] Isosorbide Dinitrate [Isordil] 5 mg PO TID 09/22/18 [History] hydrALAZINE HCL [Apresoline] 100 mg PO BID 09/22/18 [History] Azithromycin [Zithromax] 250 mg PO DAILY #2 tab 09/25/18 [Rx] Oseltamivir [Tamiflu] 75 mg PO Q12HR #5 cap 09/25/18 [Rx] guaiFENesin [Mucinex] 600 mg PO BID PRN #60 tab.er.12h 09/25/18 [Rx] predniSONE 40 mg PO DAILY #4 tab 09/25/18 [Rx] Follow up Appointment(s)/Referral(s): Faustino Valles DO [Doctor of Osteopathic Medicine] - 10/30/18 10:15 am Nonstaff,Physician [Primary Care Provider] - 1-2 days Patient Instructions/Handouts: Prednisone (By mouth), Guaifenesin (By mouth), Azithromycin (By mouth), Oseltamivir (By mouth), Heart Failure (DC), Influenza (DC) Activity/Diet/Wound Care/Special Instructions: No lifting over 5 pounds for 7 days Maintain abdominal binder for an additional 5 days Resume Xarelto on 10/01/18. Recommend repeat Chest x-ray in 1 week and repeat CBC in 1 week. Return to hospital if light headed, dizzy, chest pain, worsening shortness of breath, worsening fatigue. Discharge Disposition: HOME SELF-CARE
== END 2018-09-25 14:40 | disposition home or self-care (01) | DRG 871 ==
LOC: EC 06:24 → 3NMEDONC 07:26
PROVIDERS: ADMIT Family Medicine; ATTEND Family Medicine
DX: A41.89 Other specified sepsis (principal); J10.08 Influenza due to other identified influenza virus with other specified pneumonia; J12.9 Viral pneumonia, unspecified; C90.01 Multiple myeloma in remission; I48.1 Persistent atrial fibrillation; I50.22 Chronic systolic (congestive) heart failure; K50.90 Crohn's disease, unspecified, without complications; N17.9 Acute kidney failure, unspecified; D64.9 Anemia, unspecified; E87.6 Hypokalemia; G47.33 Obstructive sleep apnea (adult) (pediatric); G57.93 Unspecified mononeuropathy of bilateral lower limbs; I11.0 Hypertensive heart disease with heart failure; I25.10 Atherosclerotic heart disease of native coronary artery without angina pectoris; I25.5 Ischemic cardiomyopathy; I48.2 Chronic atrial fibrillation; I71.2 Thoracic aortic aneurysm, without rupture; M19.90 Unspecified osteoarthritis, unspecified site; R09.02 Hypoxemia; Z96.651 Presence of right artificial knee joint; S30.1XXA Contusion of abdominal wall, initial encounter; Z79.01 Long term (current) use of anticoagulants; Z79.82 Long term (current) use of aspirin; Z79.899 Other long term (current) drug therapy; Z80.1 Family history of malignant neoplasm of trachea, bronchus and lung; Z82.49 Family history of ischemic heart disease and other diseases of the circulatory system; Z85.46 Personal history of malignant neoplasm of prostate; Z87.891 Personal history of nicotine dependence; Z90.79 Acquired absence of other genital organ(s); Z95.0 Presence of cardiac pacemaker; Z88.5 Allergy status to narcotic agent; Z90.49 Acquired absence of other specified parts of digestive tract; R74.8 Abnormal levels of other serum enzymes
CPT/HCPCS: 36415; 71045; 71046; 74150; 80048; 80053; 81001; 83605; 84484; 85025; 85610; 85730; 87040; 87070; 87086; 87205; 87449; 87502; 93005; 93306; 94640; 94760; 96360; 96361; 99285

== ENCOUNTER 2018-12-31 00:01 | Inpatient (IN) | payer MEDICARE ==
--- NOTE | 2018-12-31 00:15 | ED ---
SOB HPI - General Chief Complaint: Shortness of Breath Stated Complaint: Chest Pain Source: patient, family, RN notes reviewed, old records reviewed Mode of arrival: wheelchair Limitations: no limitations - History of Present Illness Initial Comments: This is a 78-year-old male the ER for evaluation. Patient's poor strain presents with daughter, patient's today for shortness of breath history of heart disease. Patient has significant shortness of breath aside chest pain. Recent travel history no sick contacts or recent change in medications. No fevers. states he hasn't difficulty breathing and chest pain earlier in the chest pain is resolved but shortness of breath to exists MD Complaint: shortness of breath, chest pain -: hour(s) Severity: mild Severity scale (1-10): 2 Consistency: constant (Short of breath), now resolved (The pain is resolved) Improves With: nothing Worsens With: exertion, movement Known History Of: congestive heart failure Associated Symptoms: chest pain, pain with inspiration, palpitations Treatments Prior to Arrival: none - Related Data Home Medications Medication Instructions Recorded Confirmed Cholecalciferol [Vitamin D3 (25 1,000 unit PO DAILY 02/20/16 09/22/18 Mcg = 1000 Iu)] Folic Acid 1 mg PO HS 02/20/16 09/22/18 Potassium Chloride [Klor-Con 20] 20 meq PO BID 02/20/16 09/22/18 Carvedilol [Coreg] 12.5 mg PO BID 09/22/18 09/22/18 Furosemide [Lasix] 40 mg PO DAILY 09/22/18 09/22/18 Gabapentin [Neurontin] 300 mg PO BID 09/22/18 09/22/18 Isosorbide Dinitrate [Isordil] 5 mg PO TID 09/22/18 09/22/18 hydrALAZINE HCL [Apresoline] 100 mg PO BID 09/22/18 09/22/18 Previous Rx's Medication Instructions Recorded Nitroglycerin Sl Tabs [Nitrostat] 0.4 mg SUBLINGUAL Q5M PRN #100 tab 02/22/16 Azithromycin [Zithromax] 250 mg PO DAILY #2 tab 09/25/18 Oseltamivir [Tamiflu] 75 mg PO Q12HR #5 cap 09/25/18 guaiFENesin [Mucinex] 600 mg PO BID PRN #60 tab.er.12h 09/25/18 predniSONE 40 mg PO DAILY #4 tab 09/25/18 Allergies Allergy/AdvReac Type Severity Reaction Status Date / Time meperidine HCl [From Demerol] Allergy BLOOD Verified 12/31/18 00:07 PRESSURE DROPPED Review of Systems ROS Statement: Those systems with pertinent positive or pertinent negative responses have been documented in the HPI. ROS Other: All systems not noted in ROS Statement are negative. Past Medical History Past Medical History: Atrial Fibrillation, Cancer, Heart Failure, Hypertension, Sleep Apnea/CPAP/BIPAP Additional Past Medical History / Comment(s): WEARS C-PAP AT HOME. LEFT SHOULDER ROTATOR CUFF INJURY CURRENTLY, RIGHT SIDE FLOATING RIB FROM OLD INJURY, PROSTATE CANCER WITH REMOVAL OF PROSTATE, Chrons, Multiple Myeloma , uses a cane, pacemaker History of Any Multi-Drug Resistant Organisms: None Reported Past Surgical History: Cholecystectomy, Orthopedic Surgery, Pacemaker, Prostate Surgery Additional Past Surgical History / Comment(s): RIGHT KNEE REPLACED, pacemaker 2018, Past Anesthesia/Blood Transfusion Reactions: Postoperative Nausea & Vomiting (PONV) Type of Cardiac Device: Permanent Pacemaker Device Placement Date:: 2017 Past Psychological History: No Psychological Hx Reported Smoking Status: Former smoker Past Alcohol Use History: Occasional Past Drug Use History: None Reported - Past Family History Father Family Medical History: Hypertension Additional Family Medical History / Comment(s): LUNG CANCER Mother Family Medical History: Hypertension Additional Family Medical History / Comment(s): LIVED UNTIL 95 YEARS OLD. General Exam Limitations: no limitations General appearance: alert, in no apparent distress, anxious Head exam: Present: atraumatic, normocephalic, normal inspection Eye exam: Present: normal appearance, PERRL, EOMI. Absent: scleral icterus, conjunctival injection, periorbital swelling ENT exam: Present: normal exam, mucous membranes moist Neck exam: Present: normal inspection. Absent: tenderness, meningismus, lympha denopathy Respiratory exam: Present: rales, accessory muscle use, decreased breath sounds, prolonged expiratory. Absent: respiratory distress, wheezes, rhonchi, stridor Cardiovascular Exam: Present: regular rate, normal rhythm, normal heart sounds. Absent: systolic murmur, diastolic murmur, rubs, gallop, clicks GI/Abdominal exam: Present: soft, normal bowel sounds. Absent: distended, tenderness, guarding, rebound, rigid Extremities exam: Present: normal inspection, full ROM, normal capillary refill. Absent: tenderness, pedal edema, joint swelling, calf tenderness Back exam: Present: normal inspection Neurological exam: Present: alert, oriented X3, CN II-XII intact Psychiatric exam: Present: normal affect, normal mood Skin exam: Present: warm, dry, intact, normal color. Absent: rash Course Vital Signs 12/31/18 12/31/18 12/31/18 00:05 00:37 00:40 Temperature 98.3 F Pulse Rate 75 61 60 Respiratory 22 16 Rate Blood Pressure 174/116 157/107 O2 Sat by Pulse 93 L 96 Oximetry 12/31/18 12/31/18 12/31/18 00:46 02:26 02:31 Temperature 98.7 F Pulse Rate 62 60 60 Respiratory 18 18 Rate Blood Pressure 160/110 161/105 O2 Sat by Pulse 96 96 Oximetry - Reevaluation(s) Reevaluation #1: 12/31/18 02:53 Record is reviewed Reevaluation #2: 12/31/18 02:53 Patient is improving with breathing treatment and blood pressure control Medical Decision Making - Medical Decision Making 78-year-old male the ER for evasive significant shortness of breath and elevated blood pressure blood pressure well-controlled currently, patient started on diuresis for CHF secondary to hypertension. - Lab Data Result diagrams: 12/31/18 00:20 12/31/18 00:20 Lab Results 12/31/18 12/31/18 12/31/18 Range/Units 00:20 00:20 00:20 WBC 8.3 (3.8-10.6) k/uL RBC 4.29 L (4.30-5.90) m/uL Hgb 12.3 L (13.0-17.5) gm/dL Hct 38.0 L (39.0-53.0) % MCV 88.5 (80.0-100.0) fL MCH 28.6 (25.0-35.0) pg MCHC 32.4 (31.0-37.0) g/dL RDW 16.3 H (11.5-15.5) % Plt Count 173 (150-450) k/uL Neutrophils % 75 % Lymphocytes % 14 % Monocytes % 5 % Eosinophils % 5 % Basophils % 0 % Neutrophils # 6.3 (1.3-7.7) k/uL Lymphocytes # 1.1 (1.0-4.8) k/uL Monocytes # 0.4 (0-1.0) k/uL Eosinophils # 0.4 (0-0.7) k/uL Basophils # 0.0 (0-0.2) k/uL Anisocytosis Slight PT (9.0-12.0) sec INR (<1.2) APTT (22.0-30.0) sec Sodium 141 (137-145) mmol/L Potassium 4.0 (3.5-5.1) mmol/L Chloride 108 H (98-107) mmol/L Carbon Dioxide 23 (22-30) mmol/L Anion Gap 10 mmol/L BUN 22 H (9-20) mg/dL Creatinine 1.35 H (0.66-1.25) mg/dL Est GFR (CKD-EPI)AfAm 57 (>60 ml/min/1.73 sqM) Est GFR (CKD-EPI)NonAf 49 (>60 ml/min/1.73 sqM) Glucose 104 H (74-99) mg/dL Calcium 9.5 (8.4-10.2) mg/dL Magnesium 2.1 (1.6-2.3) mg/dL Total Bilirubin 0.9 (0.2-1.3) mg/dL AST 26 (17-59) U/L ALT 15 L (21-72) U/L Alkaline Phosphatase 41 (38-126) U/L Troponin I (0.000-0.034) ng/mL NT-Pro-B Natriuret Pep 6710 pg/mL Total Protein 7.4 (6.3-8.2) g/dL Albumin 4.1 (3.5-5.0) g/dL 12/31/18 12/31/18 Range/Units 00:20 00:20 WBC (3.8-10.6) k/uL RBC (4.30-5.90) m/uL Hgb (13.0-17.5) gm/dL Hct (39.0-53.0) % MCV (80.0-100.0) fL MCH (25.0-35.0) pg MCHC (31.0-37.0) g/dL RDW (11.5-15.5) % Plt Count (150-450) k/uL Neutrophils % % Lymphocytes % % Monocytes % % Eosinophils % % Basophils % % Neutrophils # (1.3-7.7) k/uL Lymphocytes # (1.0-4.8) k/uL Monocytes # (0-1.0) k/uL Eosinophils # (0-0.7) k/uL Basophils # (0-0.2) k/uL Anisocytosis PT 13.6 H (9.0-12.0) sec INR 1.3 H (<1.2) APTT 32.6 H (22.0-30.0) sec Sodium (137-145) mmol/L Potassium (3.5-5.1) mmol/L Chloride (98-107) mmol/L Carbon Dioxide (22-30) mmol/L Anion Gap mmol/L BUN (9-20) mg/dL Creatinine (0.66-1.25) mg/dL Est GFR (CKD-EPI)AfAm (>60 ml/min/1.73 sqM) Est GFR (CKD-EPI)NonAf (>60 ml/min/1.73 sqM) Glucose (74-99) mg/dL Calcium (8.4-10.2) mg/dL Magnesium (1.6-2.3) mg/dL Total Bilirubin (0.2-1.3) mg/dL AST (17-59) U/L ALT (21-72) U/L Alkaline Phosphatase (38-126) U/L Troponin I 0.024 (0.000-0.034) ng/mL NT-Pro-B Natriuret Pep pg/mL Total Protein (6.3-8.2) g/dL Albumin (3.5-5.0) g/dL - EKG Data -: EKG Interpreted by Me (EKG shows A. fib rate of 71, QRS 170, QTc 532) - Radiology Data Radiology results: report reviewed (Chest x-ray shows positive CHF and pulmonary edema), image reviewed Disposition Clinical Impression: Acute pulmonary edema, Congestive heart failure, Hypertensive CHF Disposition: ADMITTED IP TO THIS [facility] Condition: Fair Is patient prescribed a controlled substance at d/c from ED?: No Referrals: Nonstaff,Physician [REFERRING] - 1-2 days
[2018-12-31] MEDS ORDERED: ENALAPRILAT 1.25 MG/ML 1 ML VIAL IVP STA (00:28)
[2018-12-31] MEDS ORDERED: IPRATROPIUM-ALBUTEROL 3 ML NEB INHALATION STA (00:28)
[2018-12-31] MEDS ORDERED: FUROSEMIDE 10 MG/ML 4 ML VIAL IV STA (00:28)
[2018-12-31 00:44] LABS: Anisocytosis Slight; Basophils % (A) 0 %; Eosinophils # (A) 0.4 k/uL (0-0.7); Eosinophils % (A) 5 %; HGB 12.3 gm/dL (13.0-17.5); Lymphocytes # (A) 1.1 k/uL (1.0-4.8); Lymphocytes % (A) 14 %; MCH 28.6 pg (25.0-35.0); MCHC 32.4 g/dL (31.0-37.0); MCV 88.5 fL (80.0-100.0); Mean Platelet Volume 7.5; Monocytes # (A) 0.4 k/uL (0-1.0); Monocytes % (A) 5 %; Neutrophils # (A) 6.3 k/uL (1.3-7.7); Neutrophils % (A) 75 %; Platelet Count 173 k/uL (150-450); RBC 4.29 m/uL (4.30-5.90); RDW 16.3 % (11.5-15.5); WBC 8.3 k/uL (3.8-10.6)
[2018-12-31 00:54] LABS: INR 1.3 (<1.2); Partial Thromboplastin Time 32.6 sec (22.0-30.0); Prothrombin Time 13.6 sec (9.0-12.0)
[2018-12-31 00:58] LABS: Albumin 4.1 g/dL (3.5-5.0); Calcium 9.5 mg/dL (8.4-10.2); Magnesium 2.1 mg/dL (1.6-2.3); Total Bilirubin 0.9 mg/dL (0.2-1.3); Total Protein 7.4 g/dL (6.3-8.2)
--- NOTE | 2018-12-31 02:33 | XR ---
INDICATION: Shortness of breath COMPARISON: CXR 09/24/18 FINDINGS: Portable AP view of the chest is submitted for interpretation. There is a left chest wall ICD with single right ventricular the. The heart is enlarged. There is pulmonary vascular congestion and diffuse prominence of the pulmonary interstitium, likely interstitial edema. Thoracic aorta appears ectatic, stable from prior exam. Slight blunting of the costophrenic angles may represent trace effusions. There is no pneumothorax. There are multiple old, healed right-sided rib fractures. There are no acute osseous findings. IMPRESSION: 1. Cardiomegaly, pulmonary vascular congestion, and interstitial edema. Possible trace effusions.
[2018-12-31] MEDS ORDERED: hydrALAZINE HCL 20 MG/ML 1 ML VIAL IVP STA (03:37)
[2018-12-31 05:01] LABS: Glucose,Whole Blood 110 mg/dL (75-99)
[2018-12-31 05:26] VITALS: BMI 32.3
[2018-12-31] MEDS: FUROSEMIDE 10 MG/ML 4 ML VIAL IV SCH ×2 (05:38→17:20)
[2018-12-31] MEDS ORDERED: ONDANSETRON 4 MG/2 ML VIAL IVP STA (08:13)
[2018-12-31] MEDS: ONDANSETRON 4 MG/2 ML VIAL ONE ×2 (08:15→20:35)
--- NOTE | 2018-12-31 10:44 | CONS ---
CONSULTATION CHIEF COMPLAINT: Shortness of breath. Mika is an 78-year-old gentleman with history of cardiomyopathy with an ejection fraction of 40% to 45% who presented to the emergency room yesterday complaining of shortness of breath. He states that over the last few days, he has been getting progressively short of breath, mild to moderate intensity at rest without any orthopnea or paroxysmal nocturnal dyspnea. A chest x-ray on admission revealed pulmonary edema. He had been treated with intravenous diuretics with significant improvement. Patient also had chest pain that was sharp, precordial and seemed quite atypical. Two sets of troponins are negative. BNP is elevated at 6710. PAST MEDICAL HISTORY: Significant for atrial fibrillation, pacemaker placement, hypertension, COPD. MEDICATIONS: At home included Apresoline, Xarelto, K-Dur, Claritin, Isordil, Neurontin, Coreg. ALLERGIES: To DEMEROL. FAMILY HISTORY: Negative for premature coronary artery disease. SOCIAL HISTORY: Negative for current smoking, EtOH abuse, or drug abuse. REVIEW OF SYSTEMS: HEENT: Unremarkable. CARDIAC: As described above. RESPIRATORY: As described above. GI: Negative. GENITOURINARY: Negative. ALLERGY/IMMUNOLOGY: Negative. SKIN: Negative. MUSCULOSKELETAL: Significant for arthritis. PSYCHOSOCIAL: Negative. ENDOCRINE: Negative. DERM: Negative. CONSTITUTIONAL: Negative. ONCOLOGICAL: Negative. Rest of the system review is not relevant. PHYSICAL EXAM: Blood pressure is elevated at 157/102. There is no jugular venous distention. Carotid upstroke is diminished. There is no bruit. Chest exam reveals good air entry bilaterally. Heart exam reveals first and second heart sounds. Ejection systolic murmur in the aortic area. Abdomen is soft. Exam of extremities did reveal trace edema. Peripheral pulses are felt. LABS: Show a hemoglobin of 12.3, platelet count is 173, potassium is 4, creatinine is 1.3. Two sets of troponins are negative. BNP is elevated. ASSESSMENT: 1. Acute exacerbation of chronic systolic heart failure. 2. History of atrial fibrillation. 3. Mild nonobstructive coronary artery disease. 4. Uncontrolled hypertension. PLAN: I am going to resume his home medications, if necessary add amlodipine 10 mg daily for better blood pressure control. Continue the beta blockers and hydralazine that he is currently on and add EMILY inhibitors. Once heart failure is better controlled, we will consider doing a stress test on him to look for ischemia and if necessary, do a cardiac catheterization on him. MMALEXANDRAL / IJN: [id number] /
[2018-12-31] MEDS ORDERED: RIVAROXABAN 20 MG TAB PO SCH ×2 (11:30→21:00)
[2018-12-31] MEDS: CARVEDILOL 12.5 MG TAB PO SCH ×2 (12:09→17:20)
[2018-12-31] MEDS: hydrALAZINE HCL 50 MG TAB PO SCH ×2 (12:10→20:27)
[2018-12-31] MEDS ORDERED: ALBUTEROL NEBULIZED 1.25 MG/3 ML INHALATION SCH (13:00)
[2018-12-31] MEDS ORDERED: ALBUTEROL NEBULIZED 2.5 MG/3 ML INHALATION PRN (16:05)
--- NOTE | 2018-12-31 16:21 | HP ---
HISTORY AND PHYSICAL CHIEF COMPLAINT: Shortness of breath and hypertension. HISTORY OF PRESENT ILLNESS: This is apparently another admission for this 78-year-old gentleman who presented to the emergency room with shortness of breath. He was also slightly diaphoretic. In the ER, his blood pressure was significantly elevated. He was in CHF. He denied any chest pain. He has chronic atrial fibrillation. REVIEW OF SYSTEMS: He has had no syncope, focal neurologic deficits, CVAs, change in vision or hearing, hemoptysis, orthopnea, PND, nausea, vomiting, hematemesis, melena, hematochezia, colitis, diverticulosis, diverticulitis, hemorrhoids, jaundice, hepatitis, etc. He has had no renal failure, hematuria, frequency, urgency, nocturia, incontinence, etc. He had surgery for carcinoma of the prostate many years ago. He is not diabetic. Past medical history, family history, and personal and social histories reveal that he has on: 1. Albuterol nebulizer as well as updrafts. 2. Symbicort. 3. Lasix. 4. Isordil. 5. Ativan. 6. Coreg. 7. Vitamin D3. 8. Folic acid. 9. Gabapentin. 10.Hydralazine. 11.Potassium. 12.Claritin. 13.Xarelto. Surgically he has had cholecystectomy, removal of the prostate and a right knee procedure. He used to smoke but has quit. He has a strong family history of heart disease. PHYSICAL EXAMINATION: Blood pressure is 173/116 with a pulse of 89, respirations of 40. He is afebrile. In general he appeared to be very uncomfortable and short of breath. Skin was dry. Lymph nodes were not enlarged. Head, ears, eyes, nose, mouth and throat were normal. Neck veins were not distended. Thyroid was not enlarged. Chest demonstrated decreased breath sounds with scattered rales anteriorly and posteriorly. Cardiac exam demonstrated what sounded like atrial fibrillation. The abdomen was slightly protuberant, soft, nontender without any visceromegaly or masses. Bowel sounds were present. Extremities were normal. Neurologically he was intact. IMPRESSION: 1. Congestive heart failure. 2. Uncontrolled hypertension. 3. Atrial fibrillation. PLAN: 1. Bed rest. 2. IV fluids. 3. Control blood pressure. 4. Consult Cardiology. 5. Echocardiogram. 6. Follow BNP, which was initially elevated at 6700. Adjust medications in hopes of improving both his blood pressure control and his congestive heart failure. MMODL / IJN: [id number] /
[2018-12-31] MEDS: GABAPENTIN 300 MG CAP PO SCH ×2 (17:20→21:46)
[2018-12-31] MEDS: ISOSORBIDE DINITRATE 10 MG TAB PO SCH ×2 (17:20→21:47)
[2018-12-31] MEDS: ALBUTEROL NEBULIZED 2.5 MG/3 ML INHALATION SCH (19:15)
[2018-12-31] MEDS: ATORVASTATIN 80 MG TAB PO SCH (20:26)
[2018-12-31] MEDS: FOLIC ACID 1 MG TAB PO SCH (20:26)
[2018-12-31] MEDS: POTASSIUM CHLORIDE ER 20 MEQ TAB.ER PO SCH (20:28)
[2018-12-31] MEDS: LORazepam 1 MG TAB PO SCH (20:28)
[2018-12-31] MEDS ORDERED: hydrALAZINE HCL 50 MG TAB PO SCH (21:00)
[2019-01-01] MEDS ORDERED: FUROSEMIDE 10 MG/ML 4 ML VIAL IV SCH (05:00)
[2019-01-01 06:21] LABS: HCT 33.4 % (39.0-53.0); HGB 10.8 gm/dL (13.0-17.5); MCH 28.5 pg (25.0-35.0); MCHC 32.5 g/dL (31.0-37.0); MCV 87.6 fL (80.0-100.0); Mean Platelet Volume 7.9; Platelet Count 159 k/uL (150-450); RBC 3.81 m/uL (4.30-5.90); RDW 15.4 % (11.5-15.5)
[2019-01-01] MEDS: CARVEDILOL 12.5 MG TAB PO SCH ×2 (06:35→17:10)
[2019-01-01 07:00] LABS: Calcium 8.6 mg/dL (8.4-10.2); Potassium 3.3 mmol/L (3.5-5.1)
[2019-01-01] MEDS: ALBUTEROL NEBULIZED 2.5 MG/3 ML INHALATION SCH ×3 (07:03→20:24)
[2019-01-01] MEDS: SYMBICORT 160-4.5 MCG INHALER INHALATION SCH (07:03)
[2019-01-01] MEDS ORDERED: Potassium Replacement Protocol 1 EACH MISC MISCELLANE PRN (07:04)
[2019-01-01] MEDS: CHOLECALCIFEROL 1,000 UNIT TAB PO SCH (08:09)
[2019-01-01] MEDS: POTASSIUM CHLORIDE ER 20 MEQ TAB.ER PO SCH ×4 (08:09→22:18)
[2019-01-01] MEDS: GABAPENTIN 300 MG CAP PO SCH ×3 (08:09→22:19)
[2019-01-01] MEDS: LORazepam 1 MG TAB PO SCH ×2 (08:10→22:18)
[2019-01-01] MEDS: hydrALAZINE HCL 50 MG TAB PO SCH ×2 (08:10→22:17)
[2019-01-01] MEDS: LORATADINE 10 MG TAB PO SCH (08:10)
--- NOTE | 2019-01-01 08:48 | XR ---
EXAMINATION TYPE: XR chest 1V portable DATE OF EXAM: 01/01/2019 COMPARISON: 12/31/2018 HISTORY: Shortness of breath TECHNIQUE: Single frontal view of the chest is obtained. FINDINGS: There is a left chest wall ICD with single right ventricular the. The heart is enlarged. T here is pulmonary vascular congestion and diffuse prominence of the pulmonary interstitium, likely in terstitial edema. Thoracic aorta appears ectatic, stable from prior exam. Slight blunting of the cost ophrenic angles may represent trace effusions. There is no pneumothorax. There are multiple old, heal ed right-sided rib fractures. Arthropathy of the shoulders. IMPRESSION: 1. Stable bilateral subsegmental consolidation and cardiomegaly. Underlying COPD suspected. Tiny effu sions appear stable. 2. Interstitium is slightly improved may represent improving interstitial pneumonitis or venous conge stion
[2019-01-01] MEDS: ISOSORBIDE DINITRATE 10 MG TAB PO SCH ×3 (08:54→22:20)
[2019-01-01] MEDS ORDERED: FUROSEMIDE 40 MG TAB PO SCH (09:00)
--- NOTE | 2019-01-01 10:12 | P.PN ---
Subjective Progress Note Date: 01/01/19 This is a 78-year-old gentleman with history of cardiomyopathy and an ejection fraction of 40-45% who was admitted to the hospital with complaints of increasing shortness of breath. Apparently was working outside in the heat prolonged time and started having this symptoms. Denied any chest pain. Chest x-ray on admission was reported as showing CHF and pulmonary edema. Patient was treated with the intravenous diuretics. His pro-BNP was more than 6000. He seemed to feeling much better today. However, his creatinine jumped to 1.9 from 1.3. Chest x-ray appears to be some improvement, though underlying pneumonitis cannot be excluded. There is also underlying COPD. I will hold IV diuretics and follow his creatinine. May request. Pulmonic consult to rule out any underlying interstitial pneumonitis. His blood pressure was low on admission but seemed to be gradually improving. Objective - Vital Signs Vital signs: Vital Signs Temp 97.8 F 01/01/19 08:00 Pulse 66 01/01/19 08:00 Resp 20 01/01/19 08:00 BP 143/98 01/01/19 08:00 Pulse Ox 92 L 01/01/19 08:00 Intake & Output 12/31/18 01/01/19 01/01/19 18:59 06:59 18:59 Intake Total 200 Output Total 3350 1400 0 Balance -3350 -1400 200 Weight 102.058 kg 101.9 kg Intake: Oral 200 Output: Urine 3350 1400 0 Other: Voiding Method Toilet Toilet Toilet Urinal Urinal Urinal - Exam GENERAL EXAM: Patient is alert and oriented and doesn't appear to be in any acute distress HEENT: Normocephalic. Normal reaction of pupils, equal size, normal range of extraocular motion. No erythema or exudates in the throat. NECK: No masses, no nuchal rigidity. CHEST: No chest wall deformity. LUNGS: Appear to be clear HEART: S1 and S2 normal with no audible mumurs or gallops. Regular rhythm, femorals equal on both sides.. ABDOMEN: No hepatosplenomegaly, normal bowel sounds, no guarding or rigidity. SKIN: No rashes CENTRAL NERVOUS SYSTEM: No focal deficits. EXTREMITIES: No cyanosis, clubbing or edema. - Labs CBC & Chem 7: 01/01/19 05:52 01/01/19 05:52 Labs: Abnormal Lab Results - Last 24 Hours (Table) 12/31/18 01/01/19 01/01/19 Range/Units 11:49 05:52 05:52 RBC 3.81 L (4.30-5.90) m/uL Hgb 10.8 L (13.0-17.5) gm/dL Hct 33.4 L (39.0-53.0) % D-Dimer 0.74 H (<0.60) mg/L FEU Potassium 3.3 L (3.5-5.1) mmol/L Carbon Dioxide 32 H (22-30) mmol/L BUN 23 H (9-20) mg/dL Creatinine 1.98 H (0.66-1.25) mg/dL Assessment and Plan (1) Cardiomyopathy Current Visit: Yes Status: Acute Code(s): I42.9 - CARDIOMYOPATHY, UNSPECIFIED SNOMED Code(s): 11924523 (2) Acute on chronic systolic CHF (congestive heart failure) Current Visit: Yes Status: Acute Code(s): I50.23 - ACUTE ON CHRONIC SYSTOLIC (CONGESTIVE) HEART FAILURE SNOMED Code(s): 320889804 (3) COPD (chronic obstructive pulmonary disease) Current Visit: Yes Status: Acute Code(s): J44.9 - CHRONIC OBSTRUCTIVE PULMONARY DISEASE, UNSPECIFIED SNOMED Code(s): 78414425 (4) Pneumonitis Current Visit: Yes Status: Acute Code(s): J18.9 - PNEUMONIA, UNSPECIFIED ORGANISM SNOMED Code(s): 344395074 (5) History of permanent cardiac pacemaker placement Current Visit: Yes Status: Acute Code(s): Z95.0 - PRESENCE OF CARDIAC PACEMAKER SNOMED Code(s): 909372018 (6) Chronic a-fib Current Visit: No Status: Chronic Code(s): I48.2 - CHRONIC ATRIAL FIBRILLATION SNOMED Code(s): 252372960 Plan: I will discontinue IV Lasix and follow his creatinine. Increase activity. May consider pulmonary consultation for possible pneumonitis
--- NOTE | 2019-01-01 11:13 | ECHOF ---
Referral Reason:CHF MEASUREMENTS -------- HEIGHT: 177.8 cm WEIGHT: 102.1 kg BP: 157/102 RVIDd: 2.9 cm (< 3.3) IVSd: 1.3 cm (0.6 - 1.1) LVIDd: 5.8 cm (3.9 - 5.3) LVPWd: 1.0 cm (0.6 - 1.1) IVSs: 1.8 cm LVIDs: 3.7 cm LVPWs: 1.7 cm LA Diam: 4.4 cm (2.7 - 3.8) LAESV Index (A-L): 43.17 ml/m Ao Diam: 4.3 cm (2.0 - 3.7) AV Cusp: 2.3 cm (1.5 - 2.6) MV EXCURSION: 17.007 mm (> 18.000) MV EF SLOPE: 81 mm/s (70 - 150) EPSS: 1.4 cm MV E Carlos: 1.01 m/s MV DecT: 110 ms MV A Carlos: 0.37 m/s MV E/A Ratio: 2.70 RAP: 5.00 mmHg RVSP: 38.79 mmHg FINDINGS -------- Paced rhythm. This was a technically adequate study. The left ventricular size is normal. There is mild concentric left ventricular hypertrophy. Overa ll left ventricular systolic function is mild-moderately impaired with, an EF between 40 - 45 %. Ba zaid inferior LV wall motion is hypokinetic. Basal inferoseptal LV wall motion is hypokinetic. A nterseptal Hypokinesis Interatrial and interventricular septum intact. There is mild aortic valve sclerosis. There is mild aortic regurgitation. The mitral valve leaflets are mildly thickened. Mild mitral annular calcification present. Mild m itral regurgitation is present. Mild tricuspid regurgitation present. There is mild pulmonary hypertension. The right ventricular systolic pressure, as measured by Doppler, is 38.79mmHg. The pulmonic valve was not well visualized. The aortic root is dilated measuring 4.3cm. Normal inferior vena cava with normal inspiratory collapse consistent with estimated right atrial pre ssure of 5 mmHg. There is no pericardial effusion. CONCLUSIONS -------- 1. Paced rhythm. 2. This was a technically adequate study. 3. The left ventricular size is normal. 4. There is mild concentric left ventricular hypertrophy. 5. Basal inferior LV wall motion is hypokinetic. 6. Basal inferoseptal LV wall motion is hypokinetic. 7. Anterseptal Hypokinesis 8. Interatrial and interventricular septum intact. 9. There is mild aortic valve sclerosis. 10. There is mild aortic regurgitation. 11. The mitral valve leaflets are mildly thickened. 12. Mild mitral annular calcification present. 13. Mild mitral regurgitation is present. 14. Mild tricuspid regurgitation present. 15. There is mild pulmonary hypertension. 16. The right ventricular systolic pressure, as measured by Doppler, is 38.79mmHg. 17. The pulmonic valve was not well visualized. 18. The aortic root is dilated measuring 4.3cm. 19. Normal inferior vena cava with normal inspiratory collapse consistent with estimated right atrial pressure of 5 mmHg. 20. There is no pericardial effusion. COMPOSITION TILE LAYER: Barbara Hoffman RDCS
--- NOTE | 2019-01-01 15:24 | CDI ---
Documentation Clarification Form Date: 01/01/2019 3:14:25 PM From: Devi Levy RN, CCDS Admit Date: 12/31/2018 2:51:00 AM Patient Name: Mika Engle V Visit Number: [id number] ATTENTION: The Clinical Documentation Specialists (CDI) and [facility] Coding Staff appreciate your assistance in clarifying documentation. Please respond to the clarification below the line at the bottom and electronically sign. The CDI & [facility] Coding staff will review the response and follow-up if needed. Please note: Queries are made part of the Legal Health Record. If you have any questions, please contact the author of this message via ITS. Dr. Santhosh Anderson Increasing BUN and Creatinine in the setting of acute CHF have been noted. Please provide clinical significance. History/Risk Factors: Systolic CHF, Uncontrolled HTN, chronic Atrial Fib, COPD 09/25/18 Patients baseline BUN/CR/GFR: 26/1.16/60 Clinical Indicators: Current BUN: / Cr: 1.35/1.98 GFR: 49/31 Treatment: Lasix 40 mg IVP x 3 doses IVF- none ordered In order to capture the severity of condition, please clarify if the condition signifies: Acute renal failure, Please specify etiology (if known): Cortical Necrosis Medullary Necrosis Tubular Necrosis Acute kidney injury Acute on chronic renal failure CKD Stage 1 GFR >90 CKD Stage 2 GFR 60-89 CKD Stage 3 GFR 30-59 CKD Stage 4 GFR 15-29 CKD Stage 5 GFR <15 Chronic renal failure/Chronic Kidney disease (CKD) please stage (if known): CKD Stage 1 GFR >90 CKD Stage 2 GFR 60-89 CKD Stage 3 GFR 30-59 CKD Stage 4 GFR 15-29 CKD Stage 5 GFR <15 ESRD Other, please specify Unable to determine (Last Revision: September 2017) MTDD
--- NOTE | 2019-01-01 15:31 | CDI ---
Documentation Clarification Form Date: 01/01/2019 3:25:30 PM From: Devi Levy RN, CCDS Admit Date: 12/31/2018 2:51:00 AM Patient Name: Mika Engle V Visit Number: [id number] ATTENTION: The Clinical Documentation Specialists (CDI) and [facility] Coding Staff appreciate your assistance in clarifying documentation. Please respond to the clarification below the line at the bottom and electronically sign. The CDI & [facility] Coding staff will review the response and follow-up if needed. Please note: Queries are made part of the Legal Health Record. If you have any questions, please contact the author of this message via ITS. Dr. Santhosh Astorga declining Hgb and Hct have been noted and lacks specificity to accurately reflect your patients severity of condition and clarification is needed. History/Risk Factors: acute on chronic systolic CHF, chronic Atrial fib, uncontrolled HTN, CAD, COPD Clinical indicators: Hemoglobin: 12.3/10.8 Hematocrit: 38/33.4 Treatment: labs AM Daily In order to capture the severity of condition, please clarify the significance of the declining Hgb and Hct and etiology if known: Acute blood loss anemia Acute on chronic blood loss anemia Chronic blood loss anemia Iron deficiency anemia Drug induced anemia Nutritional anemia Anemia of chronic kidney disease Anemia of chronic disease (please specify) Unable to determine Other, please specify (Last Revision: March 2017) MTDD
[2019-01-01] MEDS ORDERED: RIVAROXABAN 15 MG TAB PO SCH (21:00)
[2019-01-01] MEDS: FOLIC ACID 1 MG TAB PO SCH (22:16)
[2019-01-01] MEDS: ATORVASTATIN 80 MG TAB PO SCH (22:16)
--- NOTE | 2019-01-01 22:29 | PN ---
PROGRESS NOTE CHIEF COMPLAINT: Congestive heart failure. HISTORY OF PRESENT ILLNESS: This gentleman is improving. Breathing is much improved. He is having no further chest discomfort. Blood pressure is in normal range. PHYSICAL EXAM: Chest demonstrates only occasional rales with fairly good breath sounds throughout. Cardiac exam is normal and it sounds as though he is in atrial fibrillation. Abdomen is soft, nontender. IMPRESSION: 1. Hypertension. 2. Congestive heart failure. PLAN: Continue the current diuresis and increase activity. MMODL / IJN: [id number] /
[2019-01-02 05:38] LABS: Calcium 8.8 mg/dL (8.4-10.2)
[2019-01-02] MEDS: CARVEDILOL 12.5 MG TAB PO SCH (06:51)
[2019-01-02] MEDS: SYMBICORT 160-4.5 MCG INHALER INHALATION SCH (07:51)
[2019-01-02] MEDS: ALBUTEROL NEBULIZED 2.5 MG/3 ML INHALATION SCH ×2 (07:51→12:59)
[2019-01-02] MEDS: CHOLECALCIFEROL 1,000 UNIT TAB PO SCH (07:58)
[2019-01-02] MEDS: hydrALAZINE HCL 50 MG TAB PO SCH (07:58)
[2019-01-02] MEDS: ISOSORBIDE DINITRATE 10 MG TAB PO SCH (07:58)
[2019-01-02] MEDS: GABAPENTIN 300 MG CAP PO SCH (07:58)
[2019-01-02] MEDS: LORazepam 1 MG TAB PO SCH (07:59)
[2019-01-02] MEDS: LORATADINE 10 MG TAB PO SCH (07:59)
[2019-01-02] MEDS: POTASSIUM CHLORIDE ER 20 MEQ TAB.ER PO SCH (07:59)
--- NOTE | 2019-01-02 09:48 | PN ---
PROGRESS NOTE Mika has history of cardiomyopathy with an ejection fraction of 40% to 45%, was admitted to hospital with increasing shortness of breath, initially thought to be due to CHF. He was treated with IV diuretics with some improvement in his symptoms, but his creatinine had gone up. His chest x-ray also suggested the possibility of pneumonitis. The diuretics are on hold right now. The patient is doing well clinically and wishes to go home. PHYSICAL EXAM: He is afebrile. Heart rate is 60 with a blood pressure is 120/70, respiratory rate is 18. Chest exam reveals good air entry bilaterally. I do not hear any crackles or rhonchi. Heart exam reveals first and second heart sounds. No gallop. Exam of the extremities did not reveal any edema. The patient is currently on Lipitor, Coreg 25 b.i.d., Neurontin, hydralazine 100 b.i.d., K-Dur and Xarelto. He is allergic to DEMEROL. FAMILY HISTORY: Negative for premature coronary artery disease. SOCIAL HISTORY: Negative for smoking, EtOH abuse, or drug abuse. REVIEW OF SYSTEMS: HEENT: Unremarkable. CARDIAC: As described above. RESPIRATORY: As described above. GI: Negative. GENITOURINARY: Negative. ALLERGY/IMMUNOLOGY: Negative. SKIN: Negative. MUSCULOSKELETAL: Negative. ENDOCRINE: Negative. DERM: Negative. PSYCHOLOGICAL: Negative. CONSTITUTIONAL: Negative. ASSESSMENT: Shortness of breath either due to congestive heart failure exacerbation or due to pneumonitis. The patient is improving clinically. Has developed prerenal azotemia. Hence, I am going to hold the Lasix at this time. We can resume his home dose of Lasix and discharge. Patient is otherwise doing well. MMODL / IJN: [id number] /
[2019-01-02 12:55] VITALS: BP 127/86; RESP 19; TEMP 98
[2019-01-02 13:09] VITALS: PULSE 65
--- NOTE | 2019-01-02 18:27 | DS ---
DISCHARGE SUMMARY CHIEF COMPLAINT: Difficulty breathing. HISTORY OF PRESENT ILLNESS AND PHYSICAL EXAMINATION: Details of this man's history and physical can be found in the initial workup. LABORATORY STUDIES: While he was in the hospital he had laboratory studies, details of which can be found in the laboratory section of his chart. COURSE IN THE HOSPITAL: After admission he was placed on bedrest, started on intravenous fluids, and he was treated for acute congestive heart failure. He diuresed and responded well, and his breathing improved. His chest cleared. He was seen by Cardiology. He was doing well enough that it was felt he could be discharged on January 02. He will go home on his usual activity, diet and medication and will follow up either with us or his own physician. FINAL DIAGNOSES: 1. Acute congestive heart failure. 2. Chronic congestive heart failure. 3. Coronary artery disease. 4. Chronic renal failure. 5. Hypokalemia. OPERATIONS: None. CONSULTATION: Cardiology. He is improved. MMALEXANDARL / STEVEN: [id number] /
--- NOTE | 2019-01-03 09:36 | CDI ---
Documentation Clarification Form Date: 01/03/19 From: Taryn Pearce Phone: If you have a question regarding this query, please contact Tanisha Del Rio at [phone] between 8am and 5pm. Admit Date: 12/31/2018 2:51:00 AM Patient Name: Mika Engle V Visit Number: [id number] Discharge Date: 01/02/2019 1:36:00 PM ATTENTION: The Clinical Documentation Specialists (CDI) and [facility] Coding Staff appreciate your assistance in clarifying documentation. Please respond to the clarification below the line at the bottom and electronically sign. The CDI & [facility] Coding staff will review the response and follow-up if needed. Please note: Queries are made part of the Legal Health Record. If you have any questions, please contact the author of this message via ITS. Dr. Warren Elder Uncontrolled hypertension is documented in the H&P and your consult note. History/Risk Factors: Patient has a history of systolic CHF, nonobstructing CAD, hypertension and COPD. Clinical Indicators: Elevated blood pressure Vital Signs: T. 98.3, P. 75, R 22, BP 174/116 Treatment: Amlodipine 10 mg daily added to home medication of Apresoline for better blood pressure control. In your professional opinion, can you please clarify how the type of uncontrolled hypertension? Crisis Urgency Emergency Other, please specify Unable to determine MTDD
--- NOTE | 2019-01-09 12:56 | CDI ---
Documentation Clarification Form Date: 01/09/19 From: Taryn Pearce Phone: If you have a question regarding this query, please contact Tanisha Del Rio at [phone] between 8am and 5pm. Admit Date: 12/31/2018 2:51:00 AM Patient Name: Mika Engle V Visit Number: [id number] Discharge Date: 01/02/2019 1:36:00 PM ATTENTION: The Clinical Documentation Specialists (CDI) and [facility] Coding Staff appreciate your assistance in clarifying documentation. Please respond to the clarification below the line at the bottom and electronically sign. The CDI & [facility] Coding staff will review the response and follow-up if needed. Please note: Queries are made part of the Legal Health Record. If you have any questions, please contact the author of this message via ITS. Dr. Warren Elder Thank you for signing the previous query. Please document a response before signing this query. Uncontrolled hypertension is documented in the H&P and your consult note. History/Risk Factors: Patient has a history of systolic CHF, nonobstructing CAD, hypertension and COPD. Clinical Indicators: Elevated blood pressure Vital Signs: T. 98.3, P. 75, R 22, BP 174/116 Treatment: Amlodipine 10 mg daily added to home medication of Apresoline for better blood pressure control. In your professional opinion, can you please clarify how the type of uncontrolled hypertension? Crisis Urgency Emergency Other, please specify Unable to determine unable to determine MTDD
--- NOTE | 2019-01-10 13:03 | MISC ---
MISCELLANOUS REPORT QUERY: Chronic renal failure, stage IIIA. MMODL / IJN: [id number] /
--- NOTE | 2019-01-10 13:03 | MISC ---
MISCELLANOUS REPORT QUERY: Anemia of chronic disease, renal failure. MMODL / IJN: [id number] /
== END 2019-01-02 13:36 | disposition home or self-care (01) | DRG 291 ==
LOC: EC 00:01 → 2SICU 02:51
PROVIDERS: ADMIT Family Medicine; ATTEND Family Medicine
DX: I13.0 Hypertensive heart and chronic kidney disease with heart failure and stage 1 through stage 4 chronic kidney disease, or unspecified chronic kidney disease (principal); I50.23 Acute on chronic systolic (congestive) heart failure; J18.9 Pneumonia, unspecified organism; C90.00 Multiple myeloma not having achieved remission; J44.0 Chronic obstructive pulmonary disease with (acute) lower respiratory infection; K50.90 Crohn's disease, unspecified, without complications; I42.9 Cardiomyopathy, unspecified; I48.2 Chronic atrial fibrillation; N18.3 Chronic kidney disease, stage 3 (moderate); D63.1 Anemia in chronic kidney disease; E87.6 Hypokalemia; G47.30 Sleep apnea, unspecified; I25.10 Atherosclerotic heart disease of native coronary artery without angina pectoris; Z95.0 Presence of cardiac pacemaker; Z87.891 Personal history of nicotine dependence; Z85.46 Personal history of malignant neoplasm of prostate; Z79.899 Other long term (current) drug therapy; Z79.52 Long term (current) use of systemic steroids; Z88.8 Allergy status to other drugs, medicaments and biological substances; Z90.79 Acquired absence of other genital organ(s); Z90.49 Acquired absence of other specified parts of digestive tract; Z96.651 Presence of right artificial knee joint; Z80.1 Family history of malignant neoplasm of trachea, bronchus and lung; Z82.49 Family history of ischemic heart disease and other diseases of the circulatory system
CPT/HCPCS: 36415; 71045; 80048; 80053; 83735; 83880; 84484; 85025; 85027; 85379; 85610; 85730; 93306; 94640; 96374; 96375; 99285

== ENCOUNTER 2019-06-12 06:56 | Emergency (ER) | payer MEDICARE ==
[2019-06-12] MEDS ORDERED: MORPHINE SULFATE 4 MG/ML SYRINGE IVP STA ×2 (07:10→07:52)
[2019-06-12 07:11] VITALS: TEMP 97.8
[2019-06-12 07:42] LABS: Basophils # (A) 0.1 k/uL (0-0.2); Basophils % (A) 2 %; Eosinophils # (A) 0.3 k/uL (0-0.7); Eosinophils % (A) 4 %; HCT 34.7 % (39.0-53.0); HGB 11.4 gm/dL (13.0-17.5); Lymphocytes # (A) 0.9 k/uL (1.0-4.8); Lymphocytes % (A) 12 %; MCH 29.2 pg (25.0-35.0); MCHC 32.7 g/dL (31.0-37.0); MCV 89.2 fL (80.0-100.0); Mean Platelet Volume 7.8; Monocytes # (A) 0.3 k/uL (0-1.0); Monocytes % (A) 4 %; Neutrophils # (A) 5.7 k/uL (1.3-7.7); Neutrophils % (A) 78 %; Platelet Count 169 k/uL (150-450); RDW 15.3 % (11.5-15.5); WBC 7.4 k/uL (3.8-10.6)
[2019-06-12] MEDS ORDERED: Kcentra PER PHARMACY 1 EACH MISC MISCELLANE PRN (07:47)
[2019-06-12 08:00] LABS: INR 1.5 (<1.2); Partial Thromboplastin Time 30.7 sec (22.0-30.0); Prothrombin Time 15.2 sec (9.0-12.0)
[2019-06-12] MEDS ORDERED: HUMAN PROTHROMBIN COMPLX IV ONE (08:00)
[2019-06-12] MEDS ORDERED: niCARdipine 20 MG in SODIUM CHLORIDE 0.9% 192 ML IV SCH (08:00)
[2019-06-12] MEDS ORDERED: ESMOLOL IN SODIUM CHLORIDE PMX 2.5 GM in SALINE 1 250ML.BAG IV ONE (08:00)
[2019-06-12] MEDS ORDERED: HYDROmorphone 1 MG/ML 1 ML SYRINGE IVP STA (08:09)
[2019-06-12] MEDS ORDERED: LABETALOL 5 MG/ML VIAL MDV IVP STA (08:22)
[2019-06-12 08:25] VITALS: PULSE 60
[2019-06-12 08:27] LABS: Albumin 3.9 g/dL (3.5-5.0); Magnesium 2.3 mg/dL (1.6-2.3); Potassium 3.7 mmol/L (3.5-5.1); Total Bilirubin 1.2 mg/dL (0.2-1.3); Total Protein 7.1 g/dL (6.3-8.2)
--- NOTE | 2019-06-12 08:28 | CT ---
EXAMINATION TYPE: CT angio thor/abd pel aorta DATE OF EXAM: 06/12/2019 8:20 AM COMPARISON: CT abdomen pelvis 09/23/2018 HISTORY: Chest, abdominal pain acute CT DLP: 2505.9 mGycm Automated exposure control for dose reduction was used. TECHNIQUE: Performed without and with IV Contrast, patient injected with 100 ml mL of Isovue 370. 2-D reconstructed images were performed by the technologist. 3-D [id number] imaging is performed on a separate computer by the technologist.. FINDINGS: The dissection begins in the posterior aortic arch extending to the descending thoracic aorta into th e abdominal aorta. This extends into the right iliac artery and into the right common femoral artery. This may terminate at the profunda femoris. However there is some thickening of the soft tissues alex rounding the superficial femoral artery on the right. This may be some old hemorrhage and/or dissecti on. There appears to be a small flap ascending thoracic aortic region at the origin of the aortic arch. D issection through the aortic arch however is not identified. The great vessels appear intact. There i s a three-vessel arch. Aorta: Aorta at the aortic root measures 4.2 cm transverse dimension. Aorta level of main pulmonary a rtery is 4.3 cm. The proximal aortic arch has some increasing diameter of up to 6.4 cm transverse dim ension prior to the dissection. At the level of the posterior aortic arch dissection a transverse dim ension the aorta is 4.6 cm with the proximal flow lumen measuring 2.8 cm. The flow lumen is a crescen tic small area of the anterior medial descending thoracic aorta. There is a long segment of narrowing to a minimal flow lumen of 0.7 cm, series 401 image 61. Just above the diaphragm the aorta appears t o reconstitute with contrast within both flow lumen and false lumen. There is diminished contrast wit hin the majority of the aorta. The superior mesenteric artery and celiac axis are well supplied. Ther e is good flow to the 2 left renal arteries. Less flow is evident to the right renal artery which may receive flow from the false lumen. There is diminished flow to the right kidney with delay of contra st opacification on the right compared to the left. The descending thoracic aorta at the level of th e diaphragm is 3.5 cm with majority appearing to be partially contrast-filled false lumen. Aortic dissection extends through the abdominal aorta. Maximum AP diameter of the abdominal aorta in its midportion is 3.4 cm. Vascular calcification is within the aorta. Aortic dissection extends into the right common iliac artery. Left common iliac artery while tortuous appears otherwise normal. Ther e is diminished flow within the right common iliac artery dissection with some contrast in the false channel. This dissection extends into the external iliac artery. The internal iliac arteries appear w idely patent. There is severe narrowing in the mid right external iliac artery. Flow appears to be im proved at the common femoral artery. However, there is soft tissue density surrounding the common fem oral artery and the superficial femoral artery on the right. Some blood or dissection should be consi dered through this region as well. The left common femoral artery, profunda femoris, superficial femo ral artery appears widely patent. Additional findings: There is a small right pleural effusion. Old right rib fractures are evident. Emphysematous changes p resent. Adrenal glands appear normal. Liver and spleen appear normal. Gallbladder surgically absent. Pancreas appears slightly atrophic. The inferior vena cava. 7 normal caliber. Loops of bowel without contrast appear within normal limits. Urinary bladder appears normal. Prostate is slightly prominent. IMPRESSION: 1. 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 PRELIMINARY RESULTS WERE CALLED TO THE EMERGENCY ROOM PHYSICI AN [phone] MOSELEY BY TELEPHONE. 2. THERE ARE AREAS OF SEVERE NARROWING THROUGH THE DISSECTION OF THE DESCENDING THORACIC AORTA AND WI THIN THE MID RIGHT EXTERNAL ILIAC ARTERY DISCUSSED ABOVE. 3. AORTIC DISSECTION EXTENDS THROUGH THE ABDOMINAL AORTA INTO THE RIGHT ILIAC ARTERY, THE EXTERNAL IL IAC ARTERY. 4. SOFT TISSUE SURROUNDING THE RIGHT COMMON FEMORAL ARTERY AND SUPERFICIAL FEMORAL ARTERY COULD BE RE LATED TO DISSECTION AND/OR HEMORRHAGE ADJACENT TO THE VESSEL. NO ACTIVE LEAK WITH CONTRAST IDENTIFIED . 5. DELAYED OPACIFICATION OF THE RIGHT KIDNEY COMPARED TO THE LEFT.
--- NOTE | 2019-06-12 08:33 | ED ---
General Adult HPI <Faustino Hamilton - Last Filed: 06/12/19 09:59> - General Source: patient, EMS, RN notes reviewed Mode of arrival: EMS Limitations: no limitations <Mario Bassett - Last Filed: 06/12/19 10:29> - General Chief complaint: Chest Pain Stated complaint: chest pain Time Seen by Provider: 06/12/19 06:57 - History of Present Illness Initial comments: 78-year-old male presenting with sudden onset severe right groin, abdominal pain and chest pain radiating to the back. Patient is hypertensive in in moderate to severe pain. History somewhat limited. Patient is on Xarelto with history of A. fib status post pacemaker. (Faustino Hamilton) This an 78-year-old male presents emergency Department chief complaint of right groin, abdominal chest pain. Patient states it was a sudden onset this morning. Patient states awoke him. Patient states the pain is very severe into his back. Patient states that he was given fentanyl by EMS which did help. EMS gave him aspirin, nitro. Patient does admit that he is on Xarelto for history of atrial fibrillation has had a history of pacemaker. Patient states she does have some chronic pain issues. Patient does admit slight nausea no vomiting no fevers or chills no recent URI symptoms. Patient denies any history of known aortic aneurysm. (Mario Bassett) - Related Data Home Medications Medication Instructions Recorded Confirmed Cholecalciferol [Vitamin D3 (25 1,000 unit PO DAILY 02/20/16 06/12/19 Mcg = 1000 Iu)] Folic Acid 1 mg PO HS 02/20/16 06/12/19 Potassium Chloride [Klor-Con 20] 20 meq PO BID 02/20/16 06/12/19 Furosemide [Lasix] 40 mg PO DAILY 09/22/18 06/12/19 Isosorbide Dinitrate [Isordil] 5 mg PO TID 09/22/18 06/12/19 hydrALAZINE HCL [Apresoline] 100 mg PO BID 09/22/18 06/12/19 Albuterol Inhaler [Ventolin Hfa 2 puff INHALATION RT-QID PRN 12/31/18 06/12/19 Inhaler] Albuterol Nebulized [Ventolin 1.25 mg INHALATION RT-TID 12/31/18 06/12/19 Nebulized] Budesonide/Formoterol Fumarate 1 puff INHALATION RT-DAILY 12/31/18 06/12/19 [Symbicort 160-4.5 Mcg Inhaler] Carvedilol [Coreg] 25 mg PO BID 12/31/18 06/12/19 Gabapentin [Neurontin] 300 mg PO BID 12/31/18 06/12/19 LORazepam [Ativan] 1 mg PO BID 12/31/18 06/12/19 Rivaroxaban [Xarelto] 20 mg PO DAILY 12/31/18 06/12/19 HYDROcodone/APAP 5-325MG [[place] 1 tab PO Q6HR PRN 06/12/19 06/12/19 5-325] Allergies Allergy/AdvReac Type Severity Reaction Status Date / Time meperidine HCl [From Demerol] AdvReac BLOOD Verified 06/12/19 07:54 PRESSURE DROPPED Review of Systems ROS Other: All systems not noted in ROS Statement are negative. <Faustino Hamilton - Last Filed: 06/12/19 09:59> ROS Other: All systems not noted in ROS Statement are negative. <Mario Bassett - Last Filed: 06/12/19 10:29> ROS Statement: Those systems with pertinent positive or pertinent negative responses have been documented in the HPI. Past Medical History Past Medical History: Atrial Fibrillation, Cancer, Heart Failure, Hypertension, Sleep Apnea/CPAP/BIPAP Additional Past Medical History / Comment(s): WEARS C-PAP AT HOME. LEFT SHOULDER ROTATOR CUFF INJURY CURRENTLY, RIGHT SIDE FLOATING RIB FROM OLD INJURY, PROSTATE CANCER WITH REMOVAL OF PROSTATE, Chrons, Multiple Myeloma , uses a cane, pacemaker History of Any Multi-Drug Resistant Organisms: None Reported Past Surgical History: Cholecystectomy, Orthopedic Surgery, Pacemaker, Prostate Surgery Additional Past Surgical History / Comment(s): RIGHT KNEE REPLACED, pacemaker 2018, Past Anesthesia/Blood Transfusion Reactions: Postoperative Nausea & Vomiting (PONV) Type of Cardiac Device: Permanent Pacemaker Device Placement Date:: 2017 Past Psychological History: No Psychological Hx Reported Smoking Status: Former smoker Past Alcohol Use History: Occasional Past Drug Use History: None Reported - Past Family History Father Family Medical History: Hypertension Additional Family Medical History / Comment(s): LUNG CANCER Mother Family Medical History: Hypertension Additional Family Medical History / Comment(s): LIVED UNTIL 95 YEARS OLD. <DanyelleMario - Last Filed: 06/12/19 10:29> General Exam <Faustino Hamilton - Last Filed: 06/12/19 09:59> Limitations: no limitations General appearance: alert, in no apparent distress, other (Appears uncomfortable) Head exam: Present: atraumatic, normocephalic, normal inspection Eye exam: Present: normal appearance, PERRL, EOMI. Absent: scleral icterus, conjunctival injection, periorbital swelling ENT exam: Present: normal exam, normal oropharynx, mucous membranes moist Neck exam: Present: normal inspection, full ROM. Absent: tenderness, meningismus, lymphadenopathy Respiratory exam: Present: normal lung sounds bilaterally. Absent: respiratory distress, wheezes, rales, rhonchi, stridor Cardiovascular Exam: Present: regular rate, normal rhythm, normal heart sounds. Absent: systolic murmur, diastolic murmur, rubs, gallop, clicks GI/Abdominal exam: Present: soft, tenderness, normal bowel sounds. Absent: distended, guarding, rebound, rigid Extremities exam: Present: tenderness (Right groin patient complains of pain with leg straightening), other (Lower extremity pulses equal bilaterally equal warmth) Neurological exam: Present: alert, oriented X3 <DanyelleMario - Last Filed: 06/12/19 10:29> - General Exam Comments Initial Comments: Did evaluate this patient immediately upon arrival, he is pale, mildly diaphoretic. Lying supine. He has moderately tender abdomen. He has bilateral femoral pulses, he has a popliteal pulse on the right and bilateral posterior tibial pulses. His radial pulses are symmetric. (Faustino Hamilton) Course <DanyelleMario - Last Filed: 06/12/19 10:29> Vital Signs 06/12/19 06/12/19 06/12/19 06:57 07:12 07:25 Temperature 97.8 F Pulse Rate 69 Pulse Rate [ 60 Plate Stacker Hand ] Respiratory 20 Rate Blood Pressure 146/120 O2 Sat by Pulse 85 L 96 Oximetry 06/12/19 06/12/19 06/12/19 07:50 08:00 08:10 Temperature Pulse Rate 60 60 61 Pulse Rate [ Plate Stacker Hand ] Respiratory 20 20 20 Rate Blood Pressure 171/124 178/130 O2 Sat by Pulse 91 L 92 L 95 Oximetry 06/12/19 06/12/19 06/12/19 08:20 08:24 08:45 Temperature Pulse Rate 60 60 Pulse Rate [ Plate Stacker Hand ] Respiratory 20 18 Rate Blood Pressure 177/121 144/70 114/65 O2 Sat by Pulse 95 95 Oximetry ABP, PAP, CO, CI - Last 8 Hours Arterial Blood Pressure 170/98 - Reevaluation(s) Reevaluation #1: 06/12/19 08:[address] directly [address] after evaluation (Mario Bassett) EKG Findings - EKG Comments: EKG Findings:: EKG shows ventricular paced rhythm rate of 72 IA 192 QRS 488/534 <Mario Bassett - Last Filed: 06/12/19 10:29> Procedures - Arterial Line No standard instances Consent Obtained: verbal consent Size (Gauge): 18 Technique Used: direct puncture technique Post-Procedure: line sutured into place, dry sterile dressing placed Patient Tolerated Procedure: well, no complications Complications: none <Faustino Hamilton - Last Filed: 06/12/19 09:59> - Arterial Line No standard instances Additional Comments: Right radial arterial line (Faustino Hamilton) Medical Decision Making - Lab Data Result diagrams: 06/12/19 07:10 06/12/19 07:10 <Faustino Hamilton - Last Filed: 06/12/19 09:59> - Lab Data Result diagrams: 06/12/19 07:10 06/12/19 07:10 <Mario Bassett - Last Filed: 06/12/19 10:29> - Medical Decision Making Patient taken immediately to CT, CT performed, interpreted by myself as type A dissection progressing into the abdomen with significant decreased flow in the lumen and reconstitution of the iliac arteries. Patient is immediately started on esmolol, Cardene, he's reversed with PCC as he is currently on Xarelto. Arterial line is placed in the right radial. I called initially [facility] who had no vascular surgeons, I called [facility] who had no vascular surgeons, I called [facility] who was able to accept this patient. Accepting physician is Dr. Ramirez. I prefer this patient be taken by [facility] however due to weather the helicopters are not flying. He was transported by ground as a priority 1. I was in contact with EMS throughout transport, he had significant elevation in heart rate and his asthma always titrated. I suspect this may be related to hemorrhagic pericardial effusion and impending tamponade. There was an issue with the CD burning device and there was a delay in transferring the images to CD. The CD was taken with the patient's daughter who was following the paramedics approximately 10 minutes behind. [facility] was notified of this. I discussed at length the severity of this illness with multiple patient and his daughter who is at bedside. Patient and daughter are agreeable with transfer for surgical evaluation and treatment. (Faustino Hamilton) CT was obtained which shows dissection, radiologist called for official reading, did attempt to contact [facility] was unable for her thoracic surgery. Accepting at [facility]. We did contact [facility] unable to fly patient this time. EMS was contacted. (Mario Bassett) - Lab Data Lab Results 06/12/19 06/12/19 06/12/19 Range/Units 07:10 07:10 07:10 WBC 7.4 (3.8-10.6) k/uL RBC 3.90 L (4.30-5.90) m/uL Hgb 11.4 L (13.0-17.5) gm/dL Hct 34.7 L (39.0-53.0) % MCV 89.2 (80.0-100.0) fL MCH 29.2 (25.0-35.0) pg MCHC 32.7 (31.0-37.0) g/dL RDW 15.3 (11.5-15.5) % Plt Count 169 (150-450) k/uL Neutrophils % 78 % Lymphocytes % 12 % Monocytes % 4 % Eosinophils % 4 % Basophils % 2 % Neutrophils # 5.7 (1.3-7.7) k/uL Lymphocytes # 0.9 L (1.0-4.8) k/uL Monocytes # 0.3 (0-1.0) k/uL Eosinophils # 0.3 (0-0.7) k/uL Basophils # 0.1 (0-0.2) k/uL PT (9.0-12.0) sec INR (<1.2) APTT (22.0-30.0) sec Sodium 142 (137-145) mmol/L Potassium 3.7 (3.5-5.1) mmol/L Chloride 106 (98-107) mmol/L Carbon Dioxide 28 (22-30) mmol/L Anion Gap 8 mmol/L BUN 23 H (9-20) mg/dL Creatinine 1.63 H (0.66-1.25) mg/dL Est GFR (CKD-EPI)AfAm 45 (>60 ml/min/1.73 sqM) Est GFR (CKD-EPI)NonAf 39 (>60 ml/min/1.73 sqM) Glucose 112 H (74-99) mg/dL Plasma Lactic Acid Maurice (0.7-2.0) mmol/L Calcium 9.0 (8.4-10.2) mg/dL Magnesium 2.3 (1.6-2.3) mg/dL Total Bilirubin 1.2 (0.2-1.3) mg/dL AST 21 (17-59) U/L ALT 11 (4-49) U/L Alkaline Phosphatase 42 (38-126) U/L Troponin I (0.000-0.034) ng/mL NT-Pro-B Natriuret Pep 4480 pg/mL Total Protein 7.1 (6.3-8.2) g/dL Albumin 3.9 (3.5-5.0) g/dL Lipase 61 (23-300) U/L 06/12/19 06/12/19 06/12/19 Range/Units 07:10 07:10 07:10 WBC (3.8-10.6) k/uL RBC (4.30-5.90) m/uL Hgb (13.0-17.5) gm/dL Hct (39.0-53.0) % MCV (80.0-100.0) fL MCH (25.0-35.0) pg MCHC (31.0-37.0) g/dL RDW (11.5-15.5) % Plt Count (150-450) k/uL Neutrophils % % Lymphocytes % % Monocytes % % Eosinophils % % Basophils % % Neutrophils # (1.3-7.7) k/uL Lymphocytes # (1.0-4.8) k/uL Monocytes # (0-1.0) k/uL Eosinophils # (0-0.7) k/uL Basophils # (0-0.2) k/uL PT 15.2 H (9.0-12.0) sec INR 1.5 H (<1.2) APTT 30.7 H (22.0-30.0) sec Sodium (137-145) mmol/L Potassium (3.5-5.1) mmol/L Chloride (98-107) mmol/L Carbon Dioxide (22-30) mmol/L Anion Gap mmol/L BUN (9-20) mg/dL Creatinine (0.66-1.25) mg/dL Est GFR (CKD-EPI)AfAm (>60 ml/min/1.73 sqM) Est GFR (CKD-EPI)NonAf (>60 ml/min/1.73 sqM) Glucose (74-99) mg/dL Plasma Lactic Acid Maurice 0.8 (0.7-2.0) mmol/L Calcium (8.4-10.2) mg/dL Magnesium (1.6-2.3) mg/dL Total Bilirubin (0.2-1.3) mg/dL AST (17-59) U/L ALT (4-49) U/L Alkaline Phosphatase (38-126) U/L Troponin I 0.020 (0.000-0.034) ng/mL NT-Pro-B Natriuret Pep pg/mL Total Protein (6.3-8.2) g/dL Albumin (3.5-5.0) g/dL Lipase (23-300) U/L Critical Care Time Total Critical Care Time: 95 <Faustino Hamilton - Last Filed: 06/12/19 09:59> Critical Care Time: Yes Total Critical Care Time: 95 <Mario Bassett - Last Filed: 06/12/19 10:29> Critical Care Time: 95 minutes of critical care time (Faustino Hamilton) Total 35 minutes were used to initially evaluated patient, review past medical history, medications discuss this with EMS and family. Labs, CT and chest x-ray were ordered. CT shows evidence of dissection. At this time radiologist called for official reading, attempted to transfer to [facility] unable to accept transfer, did contact [facility] hospital for acceptance of transfer for cardiothoracic surgery. [facility] was contacted this time unable to fly secondary to weather. EMS was contacted immediately. Patient was given Kaycentra, given the fact he is on Xarelto 20 mg at nighttime. Patient was started on Cardene, esmolol drip for blood pressure, heart rate control. He does have A- line placed by Dr. Hamilton. Patient will be transferred via EMS to [facility] receiving Hospital (Mario Bassett) Disposition <Faustino Hamilton - Last Filed: 06/12/19 09:59> - Out of Hospital Transfer - Req. Specs Out of Hospital Transfer - Requested Specifics: Intensive Care Unit ([facility] receiving) <Mairo Bassett - Last Filed: 06/12/19 10:29> Clinical Impression: Aortic dissection Disposition: OTHER INSTITUTION NOT DEFINED Condition: Critical Referrals: Josue Watts MD [Primary Care Provider] - 1-2 days
[2019-06-12 09:21] VITALS: BP 114/65; RESP 18
[2019-06-12] MEDS ORDERED: HUMAN PROTHROMBIN COMPLX 500 UNIT/16 ML VIAL IV ONE (14:09)
== END 2019-06-12 08:45 | disposition short-term general hospital (02) ==
LOC: EC 06:56
DX: I71.01 Dissection of thoracic aorta (principal); I71.02 Dissection of abdominal aorta; I48.91 Unspecified atrial fibrillation; I11.0 Hypertensive heart disease with heart failure; I50.9 Heart failure, unspecified; G47.30 Sleep apnea, unspecified; S46.002A Unspecified injury of muscle(s) and tendon(s) of the rotator cuff of left shoulder, initial encounter; G89.29 Other chronic pain; Z87.891 Personal history of nicotine dependence; Z88.5 Allergy status to narcotic agent; Z79.01 Long term (current) use of anticoagulants; Z79.51 Long term (current) use of inhaled steroids; Z79.899 Other long term (current) drug therapy; Z85.46 Personal history of malignant neoplasm of prostate; Z85.79 Personal history of other malignant neoplasms of lymphoid, hematopoietic and related tissues; Z90.79 Acquired absence of other genital organ(s); Z96.651 Presence of right artificial knee joint; Z95.0 Presence of cardiac pacemaker; Z99.89 Dependence on other enabling machines and devices; Z82.49 Family history of ischemic heart disease and other diseases of the circulatory system; X58.XXXA Exposure to other specified factors, initial encounter
CPT/HCPCS: 36415; 93005; 83880; 80053; 83605; 83690; 83735; 84484; 85025; 85610; 85730; 71275; 74174; 99291; 99292; 36569; 96365; 96368; 96375 ×2; 96376; J2270; C9132; Q9967